=== PATIENT | female | born 1940 | race Two or more races ===

== ENCOUNTER 2017-09-11 10:53 | Inpatient (IN) | payer OTHER, MEDICAID ==
[~2017-09-11] VITALS: Ht 163.8 cm; Wt 103.6 kg
[2017-09-11 11:54] LABS: Basophils # (auto) 0 uL; Basophils % (auto) 0.4 % (0.0-2.0); Eosinophils # (auto) 0.2 uL; Eosinophils % (auto) 2.1 % (0.0-7.0); Hematocrit 37.3 % (36.0-46.0); Hemoglobin 12.5 g/dL (12.2-16.2); Lymphocytes # (auto) 1.1 uL; Lymphocytes % (auto) 13.9 % (10.0-50.0); Mean Corpuscular Hemoglobin 32.5 pg (28.0-32.0); Mean Corpuscular Hgb Conc. 33.6 g/dL (32.0-36.0); Mean Corpuscular Volume 96.6 fL (80.0-100.0); Monocytes # (auto) 0.5 uL; Monocytes % (auto) 5.6 % (0.0-12.0); Neutrophils # (auto) 6.3 uL; Platelet Count (auto) 215 10^3/uL (140-450); Red Blood Cells 3.86 10^6/uL (4.0-5.20); Red Cell Distribution Width 12.7 % (11.8-14.3); White Blood Cell 8.1 10^3/uL (4.4-10.8)
[2017-09-11 12:24] LABS: Alanine Aminotransferase 20 U/L (13-56); Albumin 3.4 g/dL (3.4-5.0); Alkaline Phosphatase 98 U/L (45-117); Anion Gap 8 (5-15); Aspartate Aminotransferase 13 U/L (15-37); BUN/Creatinine Ratio 26.1; Bilirubin, Total 0.2 mg/dL (0.2-1.0); Blood Urea Nitrogen 58 mg/dL (7-18); Calcium 8.7 mg/dL (8.5-10.1); Carbon Dioxide 25 mmol/L (21-32); Chloride 104 mmol/L (98-107); GFR African American 28 mL/min; GFR Non-African American 23 mL/min; Glucose 259 mg/dL (74-106); Magnesium 2.6 mg/dL (1.6-2.6); Potassium 4.7 mmol/L (3.5-5.1); Sodium 137 mmol/L (136-145); Total Protein 8.2 g/dL (6.4-8.2)
[2017-09-11] MEDS ORDERED: NITROGLYCERIN 0.4 MG SL TAB SL PRN (14:30)
[2017-09-11] MEDS ORDERED: DEXTROSE (50%) 50ML SYRG IV PRN (14:30)
[2017-09-11] MEDS ORDERED: LORazepam 0.5 MG TAB PO PRN (14:30)
[2017-09-11] MEDS ORDERED: TEMAZEPAM 15 MG CAP PO PRN (14:30)
[2017-09-11] MEDS ORDERED: ALBUTEROL SULF 2.5 MG/0.5ML(0.5%) NEB SOLN NEB PRN (14:30)
[2017-09-11] MEDS ORDERED: PROMETHAZINE HCL 25 MG/ML 1ML IV PRN (14:30)
[2017-09-11] MEDS ORDERED: LACTULOSE 20Gm/30ML SOLN PO PRN ×2 (14:30)
[2017-09-11] MEDS ORDERED: MORPHINE SULFATE 4 MG/ML SYR/VIAL IV PRN ×2 (14:30)
[2017-09-11] MEDS ORDERED: HYDROcodone-ACET 5/325MG TAB PO PRN (14:30)
[2017-09-11 15:11] VITALS: BP 118/63
[2017-09-11] MEDS: ASPirin 81 mg TAB PO SCH (15:16)
[2017-09-11] MEDS: ENOXAPARIN SOD 30 MG/0.3 ML SYRINGE SC SCH (15:17)
[2017-09-11 15:34] LABS: Folate (Folic Acid) > 24.00 ng/mL (5.38-24)
[2017-09-11 15:35] LABS: Urine Bacteria MANY /hpf (None Seen); Urine Blood Negative /uL (Negative); Urine WBC 8 /hpf (0 - 5)
[2017-09-11] MEDS: InsuLIN REG 1unit/0.01ml Soln (100units/ml) SC SCH ×2 (17:00→22:03)
[2017-09-11 17:42] VITALS: BP 163/82
[2017-09-11] MEDS ORDERED: PREG100C PO (17:51)
[2017-09-11] MEDS ORDERED: LISI-275 PO (17:51)
[2017-09-11] MEDS ORDERED: SITA100T7 PO (17:51)
[2017-09-11] MEDS ORDERED: ATEN100T PO (17:51)
[2017-09-11] MEDS ORDERED: ASPI81TA27 PO (17:51)
[2017-09-11] MEDS ORDERED: FURO40TA4 PO (17:51)
[2017-09-11] MEDS ORDERED: SIMV10TA84 PO (17:51)
[2017-09-11] MEDS ORDERED: INSLANTI SC (17:51)
[2017-09-11] MEDS ORDERED: INSLISPI SC (17:51)
[2017-09-11] MEDS: ACCU-CHEK COMFORT CURVE STRIP VI SCH ×2 (17:59→21:45)
[2017-09-11] MEDS: DOXYCYCLINE 100MG/250ML 250 ML IV SCH (18:34)
[2017-09-11] MEDS: SODIUM CHLORIDE 0.9% 1,000 ML IV SCH (18:34)
[2017-09-11] MEDS: ALBUTEROL SULF 2.5 MG/0.5ML(0.5%) NEB SOLN NEB SCH (19:24)
[2017-09-11] MEDS: IPRATROPIUM BROM 0.5 MG/2.5ML INH SOL NEB SCH (19:24)
[2017-09-11] MEDS ORDERED: LORazepam 2MG/ML-1ML VIAL IV PRN (19:45)
[2017-09-11 21:03] LABS: Cholesterol 180 mg/dL (< 200); HDL Cholesterol 39 mg/dL (40-59); LDL Cholesterol 111 mg/dL (< 100); Triglycerides 310 mg/dL (< 150)
[2017-09-11 21:43] VITALS: BP 163/59
[2017-09-11] MEDS: ATORVASTATIN 20 MG TAB PO SCH (21:45)
[2017-09-11] MEDS: SODIUM CHLOR 0.9% PF (SALINE LOCK) 10ML VIAL/SYR IV SCH (21:45)
[2017-09-11] MEDS: LABETALOL HCL 5 MG/ML ML 20ML VIAL IV PRN (21:46)
[2017-09-11] MEDS ORDERED: ATORVASTATIN 20 MG TAB PO SCH (22:00)
[2017-09-12] MEDS: DOXYCYCLINE 100MG/250ML 250 ML IV SCH ×2 (02:50→15:56)
[2017-09-12 05:00] VITALS: BP 120/55
[2017-09-12 06:15] LABS: Basophils # (auto) 0 uL; Basophils % (auto) 0.5 % (0.0-2.0); Eosinophils # (auto) 0.2 uL; Eosinophils % (auto) 2.8 % (0.0-7.0); Hematocrit 33.5 % (36.0-46.0); Hemoglobin 11.4 g/dL (12.2-16.2); Lymphocytes # (auto) 1.5 uL; Lymphocytes % (auto) 24.9 % (10.0-50.0); Mean Corpuscular Hgb Conc. 34.1 g/dL (32.0-36.0); Mean Corpuscular Volume 96.8 fL (80.0-100.0); Monocytes # (auto) 0.5 uL; Monocytes % (auto) 7.6 % (0.0-12.0); Neutrophils # (auto) 3.8 uL; Neutrophils % (auto) 64.2 % (37.0-80.0); Platelet Count (auto) 181 10^3/uL (140-450); Red Blood Cells 3.47 10^6/uL (4.0-5.20); Red Cell Distribution Width 12.7 % (11.8-14.3)
[2017-09-12] MEDS: IPRATROPIUM BROM 0.5 MG/2.5ML INH SOL NEB SCH ×4 (06:41→18:45)
[2017-09-12] MEDS: ALBUTEROL SULF 2.5 MG/0.5ML(0.5%) NEB SOLN NEB SCH ×4 (06:41→18:44)
[2017-09-12] MEDS: ACCU-CHEK COMFORT CURVE STRIP VI SCH ×4 (06:44→22:00)
[2017-09-12] MEDS: SODIUM CHLOR 0.9% PF (SALINE LOCK) 10ML VIAL/SYR IV SCH ×3 (06:44→22:33)
[2017-09-12] MEDS: InsuLIN REG 1unit/0.01ml Soln (100units/ml) SC SCH ×4 (06:44→22:34)
[2017-09-12 06:45] LABS: Albumin 3.1 g/dL (3.4-5.0); BUN/Creatinine Ratio 26.7; Bilirubin, Total 0.2 mg/dL (0.2-1.0); Calcium 8.6 mg/dL (8.5-10.1); Phosphorus 4.5 mg/dL (2.5-4.90); Total Protein 7.2 g/dL (6.4-8.2); Uric Acid 10.3 mg/dL (2.6-6.0)
[2017-09-12 09:00] VITALS: BP 139/66
[2017-09-12] MEDS ORDERED: POTASSIUM CHL 20 Meq TABLET PO SCH (10:00)
[2017-09-12] MEDS ORDERED: ENOXAPARIN SOD 40 MG/0.4 ML SYRINGE SC SCH (10:00)
[2017-09-12] MEDS: ENOXAPARIN SOD 30 MG/0.3 ML SYRINGE SC SCH (10:33)
[2017-09-12] MEDS: ASPirin 81 mg TAB PO SCH (10:33)
[2017-09-12] MEDS: SODIUM CHLORIDE 0.9% 1,000 ML IV SCH ×2 (10:34→15:23)
[2017-09-12] MEDS: FUROSEMIDE 40 MG/4 ML VIAL IV SCH (10:34)
[2017-09-12 12:34] VITALS: BP 167/78
[2017-09-12] MEDS: LABETALOL HCL 5 MG/ML ML 20ML VIAL IV PRN (13:05)
[2017-09-12 17:02] VITALS: BP 156/66
[2017-09-12 22:00] VITALS: BP 148/71
[2017-09-12] MEDS: ATORVASTATIN 20 MG TAB PO SCH (22:33)
[2017-09-13] MEDS: IPRATROPIUM BROM 0.5 MG/2.5ML INH SOL NEB SCH ×3 (00:36→11:31)
[2017-09-13] MEDS: ALBUTEROL SULF 2.5 MG/0.5ML(0.5%) NEB SOLN NEB SCH ×3 (00:36→11:31)
[2017-09-13] MEDS: DOXYCYCLINE 100MG/250ML 250 ML IV SCH ×2 (02:37→14:18)
[2017-09-13] MEDS: ACETAMINOPHEN 500 MG TAB PO PRN ×2 (04:39→12:08)
[2017-09-13 05:36] VITALS: BP 156/82
[2017-09-13] MEDS: SODIUM CHLOR 0.9% PF (SALINE LOCK) 10ML VIAL/SYR IV SCH ×2 (06:07→14:00)
[2017-09-13] MEDS: InsuLIN REG 1unit/0.01ml Soln (100units/ml) SC SCH ×3 (06:51→17:00)
[2017-09-13] MEDS: ACCU-CHEK COMFORT CURVE STRIP VI SCH ×3 (06:51→17:00)
[2017-09-13 07:24] LABS: BUN/Creatinine Ratio 23.3; Calcium 8.4 mg/dL (8.5-10.1); Potassium 4.3 mmol/L (3.5-5.1)
[2017-09-13 08:00] VITALS: BP 136/57
[2017-09-13 09:00] VITALS: BP 136/57
[2017-09-13] MEDS: SODIUM CHLORIDE 0.9% 1,000 ML IV SCH ×2 (09:31→14:18)
[2017-09-13] MEDS: ASPirin 81 mg TAB PO SCH (09:40)
[2017-09-13] MEDS: ENOXAPARIN SOD 30 MG/0.3 ML SYRINGE SC SCH (09:41)
[2017-09-13] MEDS: FUROSEMIDE 40 MG/4 ML VIAL IV SCH (09:41)
[2017-09-13] MEDS ORDERED: ENOXAPARIN SOD 40 MG/0.4 ML SYRINGE SC SCH (10:00)
[2017-09-13] MEDS ORDERED: amLODIPine BESYLATE 5 MG TAB PO SCH (10:00)
[2017-09-13 10:46] LABS: Urine Bacteria FEW /hpf (None Seen); Urine Blood Negative /uL (Negative); Urine Specific Gravity 1.009 (1.001-1.035); Urine WBC <1 /hpf (0 - 5)
[2017-09-13 11:19] LABS: Protein, Urine 33.7 mg/dL (0.0-11.9)
[2017-09-13 13:00] VITALS: BP 158/61
[2017-09-13 16:16] VITALS: BP 158/61
[2017-09-13 17:00] VITALS: BP 150/61
== END 2017-09-13 17:40 | disposition home or self-care (01) | DRG 682 ==
LOC: ER 10:53 → TELE 10:54 → TELE-WESTW 16:59
PROVIDERS: ADMIT Internal Medicine; ATTEND Internal Medicine
DX: I12.9 Hypertensive chronic kidney disease with stage 1 through stage 4 chronic kidney disease, or unspecified chronic kidney disease (principal); N17.0 Acute kidney failure with tubular necrosis; G45.9 Transient cerebral ischemic attack, unspecified; E11.22 Type 2 diabetes mellitus with diabetic chronic kidney disease; E11.40 Type 2 diabetes mellitus with diabetic neuropathy, unspecified; I67.2 Cerebral atherosclerosis; E66.01 Morbid (severe) obesity due to excess calories; E78.5 Hyperlipidemia, unspecified; F17.200 Nicotine dependence, unspecified, uncomplicated; F40.240 Claustrophobia; G47.10 Hypersomnia, unspecified; N18.3 Chronic kidney disease, stage 3 (moderate); Z79.82 Long term (current) use of aspirin; Z79.899 Other long term (current) drug therapy; Z82.49 Family history of ischemic heart disease and other diseases of the circulatory system; Z83.3 Family history of diabetes mellitus; Z90.710 Acquired absence of both cervix and uterus; Z90.49 Acquired absence of other specified parts of digestive tract
CPT/HCPCS: 36415; 70450; 71045; 76775; 80048; 80053; 80061; 81001; 82306; 82550; 82570; 82607; 82746; 82962; 83036; 83605; 83735; 83880; 84100; 84156; 84300; 84443; 84484; 84550; 85025; 85379; 85652; 86141; 87040; 87804; 93005; 93306; 93886; 93971; 94640; 94761; J1815; J3490

== ENCOUNTER 2019-05-31 11:04 | Emergency (ER) | payer OTHER ==
[~2019-05-31] VITALS: Ht 165.1 cm; Wt 89.8 kg
[~2019-05-31 11:04] MED LIST: ASPI-404 PO; ATEN100T PO; FURO40TA4 PO; INSLANTI SC; INSLISPI SC; LISI-275 PO; PREG100C PO; SIMV10TA84 PO; SITA100T7 PO
[2019-05-31 11:58] LABS: Basophils # (auto) 0.1 uL; Basophils % (auto) 0.7 % (0.0-2.0); Eosinophils # (auto) 0.1 uL; Eosinophils % (auto) 1.8 % (0.0-7.0); Hematocrit 38.2 % (36.0-46.0); Hemoglobin 13.2 g/dL (12.2-16.2); Lymphocytes # (auto) 1.3 uL; Lymphocytes % (auto) 17.4 % (10.0-50.0); Mean Corpuscular Hemoglobin 32.3 pg (28.0-32.0); Mean Corpuscular Hgb Conc. 34.5 g/dL (32.0-36.0); Mean Corpuscular Volume 93.7 fL (80.0-100.0); Monocytes # (auto) 0.4 uL; Monocytes % (auto) 5.4 % (0.0-12.0); Neutrophils # (auto) 5.6 uL; Neutrophils % (auto) 74.7 % (37.0-80.0); Platelet Count (auto) 256 10^3/uL (140-450); Red Blood Cells 4.08 10^6/uL (4.0-5.20); Red Cell Distribution Width 12.9 % (11.8-14.3); White Blood Cell 7.5 10^3/uL (4.4-10.8)
[2019-05-31 12:13] LABS: INR 0.96 (0.9-1.15); Partial Thromboplastin Time 27.5 sec (23.64-32.05)
[2019-05-31 12:15] LABS: Alanine Aminotransferase 29 U/L (13-56); Anion Gap 9 (5-15); Aspartate Aminotransferase 23 U/L (15-37); BUN/Creatinine Ratio 11.5; Blood Urea Nitrogen 23 mg/dL (7-18); Calcium 7.8 mg/dL (8.5-10.1); Carbon Dioxide 23 mmol/L (21-32); Chloride 105 mmol/L (98-107); GFR African American 31 mL/min; GFR Non-African American 26 mL/min; Glucose 160 mg/dL (74-106); Potassium 4.3 mmol/L (3.5-5.1); Sodium 137 mmol/L (136-145)
[2019-05-31 12:20] LABS: Alkaline Phosphatase 89 U/L (45-117); Bilirubin, Total 0.2 mg/dL (0.2-1.0)
[2019-05-31] MEDS: ASPirin-EC 81 mg tab PO ONE (16:11)
[2019-05-31 17:00] VITALS: BP 159/76
== END 2019-05-31 17:40 | disposition home or self-care (01) ==
LOC: ER 11:04 → EDBD 11:04 → ER 17:40
DX: R00.2 Palpitations (principal); R07.89 Other chest pain; R47.81 Slurred speech; R79.89 Other specified abnormal findings of blood chemistry; I12.9 Hypertensive chronic kidney disease with stage 1 through stage 4 chronic kidney disease, or unspecified chronic kidney disease; E11.22 Type 2 diabetes mellitus with diabetic chronic kidney disease; N18.9 Chronic kidney disease, unspecified; E78.5 Hyperlipidemia, unspecified; Z79.899 Other long term (current) drug therapy
CPT/HCPCS: 36415; 70450; 71045; 80053; 83735; 83880; 84443; 84484; 85025; 85379; 85610; 85730; 93005

== ENCOUNTER 2019-09-12 10:57 | Emergency (ER) | payer OTHER ==
[~2019-09-12] VITALS: Ht 165.1 cm; Wt 89.8 kg
[2019-09-12 12:38] LABS: Basophils # (auto) 0 10 ^3/uL (0-0.2); Basophils % (auto) 0.6 % (0.0-2.0); Eosinophils # (auto) 0.1 10 ^3/uL (0-0.8); Eosinophils % (auto) 1.4 % (0.0-7.0); Hematocrit 37.2 % (36.0-46.0); Hemoglobin 12.6 g/dL (12.2-16.2); Lymphocytes # (auto) 1.4 10 ^3/uL (0.4-5.4); Lymphocytes % (auto) 16.4 % (10.0-50.0); Mean Corpuscular Hemoglobin 32.2 pg (28.0-32.0); Mean Corpuscular Hgb Conc. 33.8 g/dL (32.0-36.0); Mean Corpuscular Volume 95.1 fL (80.0-100.0); Monocytes # (auto) 0.6 10 ^3/uL (0-1.3); Monocytes % (auto) 6.9 % (0.0-12.0); Neutrophils # (auto) 6.5 10 ^3/uL (1.6-8.6); Neutrophils % (auto) 74.7 % (37.0-80.0); Platelet Count (auto) 236 10^3/uL (140-450); Red Blood Cells 3.92 10^6/uL (4.0-5.20); Red Cell Distribution Width 13.1 % (11.8-14.3); White Blood Cell 8.6 10^3/uL (4.4-10.8)
[2019-09-12 13:02] LABS: Alanine Aminotransferase 14 U/L (13-56); Albumin 3.1 g/dL (3.4-5.0); Anion Gap 7 (5-15); Aspartate Aminotransferase 15 U/L (15-37); BUN/Creatinine Ratio 14.5; Blood Urea Nitrogen 32 mg/dL (7-18); Calcium 8.4 mg/dL (8.5-10.1); Carbon Dioxide 22 mmol/L (21-32); Chloride 110 mmol/L (98-107); GFR African American 28 mL/min; GFR Non-African American 23 mL/min; Glucose 85 mg/dL (74-106); Potassium 3.6 mmol/L (3.5-5.1); Sodium 139 mmol/L (136-145)
[2019-09-12 13:06] LABS: Alkaline Phosphatase 94 U/L (45-117); Bilirubin, Total 0.2 mg/dL (0.2-1.0); Total Protein 8.2 g/dL (6.4-8.2)
[2019-09-12 14:58] VITALS: BP 190/76
== END 2019-09-12 15:10 | disposition home or self-care (01) ==
LOC: ER 10:57
DX: R53.1 Weakness (principal); E11.22 Type 2 diabetes mellitus with diabetic chronic kidney disease; I12.9 Hypertensive chronic kidney disease with stage 1 through stage 4 chronic kidney disease, or unspecified chronic kidney disease; N18.9 Chronic kidney disease, unspecified; Z86.73 Personal history of transient ischemic attack (TIA), and cerebral infarction without residual deficits; Z90.710 Acquired absence of both cervix and uterus
CPT/HCPCS: 36415; 71046; 74176; 80053; 84484; 85025; 85379

== ENCOUNTER 2021-01-19 16:25 | Emergency (ER) | payer OTHER ==
[~2021-01-19] VITALS: Ht 160 cm; Wt 90.3 kg
[~2021-01-19 16:25] MED LIST changes: -ASPI-404 PO; +ASPI-543 PO
[2021-01-19] MEDS ORDERED: cloNIDine HCL 0.1 MG TAB PO ONE (17:00)
[2021-01-19] MEDS ORDERED: FUROSEMIDE 40 MG/4 ML VIAL IV ONE (17:00)
[2021-01-19 17:19] LABS: Basophils # (auto) 0.1 10 ^3/uL (0-0.2); Basophils % (auto) 0.6 % (0.0-2.0); Eosinophils # (auto) 0.1 10 ^3/uL (0-0.8); Eosinophils % (auto) 0.9 % (0.0-7.0); Hematocrit 35.2 % (36.0-46.0); Hemoglobin 11.6 g/dL (12.2-16.2); Lymphocytes # (auto) 1.4 10 ^3/uL (0.4-5.4); Lymphocytes % (auto) 11.8 % (10.0-50.0); Mean Corpuscular Hemoglobin 32.2 pg (28.0-32.0); Mean Corpuscular Hgb Conc. 32.8 g/dL (32.0-36.0); Mean Corpuscular Volume 98.2 fL (80.0-100.0); Monocytes # (auto) 0.6 10 ^3/uL (0-1.3); Monocytes % (auto) 5.1 % (0.0-12.0); Neutrophils # (auto) 9.6 10 ^3/uL (1.6-8.6); Neutrophils % (auto) 81.6 % (37.0-80.0); Red Blood Cells 3.59 10^6/uL (4.0-5.20); Red Cell Distribution Width 12.9 % (11.8-14.3); White Blood Cell 11.7 10^3/uL (4.4-10.8)
[2021-01-19 18:04] LABS: Albumin 2.9 g/dL (3.4-5.0); Anion Gap 8 (5-15); Blood Urea Nitrogen 36 mg/dL (7-18); Calcium 8.3 mg/dL (8.5-10.1); Carbon Dioxide 22 mmol/L (21-32); Chloride 111 mmol/L (98-107); Glucose 71 mg/dL (74-106); Magnesium 2.4 mg/dL (1.6-2.6); Potassium 4.4 mmol/L (3.5-5.1); Sodium 141 mmol/L (136-145)
[2021-01-19 18:09] LABS: Alanine Aminotransferase 19 U/L (13-56); Alkaline Phosphatase 74 U/L (45-117); Aspartate Aminotransferase 13 U/L (15-37); BUN/Creatinine Ratio 11.6; Bilirubin, Total 0.2 mg/dL (0.2-1.0); GFR African American 19 mL/min; GFR Non-African American 15 mL/min; Total Protein 7.4 g/dL (6.4-8.2)
[2021-01-19 19:09] VITALS: BP 165/66
== END 2021-01-19 19:18 | disposition home or self-care (01) ==
LOC: ER 16:27
DX: I13.0 Hypertensive heart and chronic kidney disease with heart failure and stage 1 through stage 4 chronic kidney disease, or unspecified chronic kidney disease (principal); I50.9 Heart failure, unspecified; R22.43 Localized swelling, mass and lump, lower limb, bilateral; E11.22 Type 2 diabetes mellitus with diabetic chronic kidney disease; N18.9 Chronic kidney disease, unspecified; E78.5 Hyperlipidemia, unspecified; Z86.73 Personal history of transient ischemic attack (TIA), and cerebral infarction without residual deficits; Z90.49 Acquired absence of other specified parts of digestive tract; Z90.710 Acquired absence of both cervix and uterus; Z79.82 Long term (current) use of aspirin; Z79.4 Long term (current) use of insulin; Z79.899 Other long term (current) drug therapy
CPT/HCPCS: 36415; 71045; 80053; 83735; 83880; 84484; 85025; 93005; 96374; 99285; J1940

== ENCOUNTER 2021-03-24 23:54 | Emergency (ER) | payer OTHER ==
[~2021-03-24] VITALS: Ht 162.6 cm; Wt 88.5 kg
[2021-03-25 03:57] LABS: Basophils # (auto) 0 10 ^3/uL (0-0.2); Basophils % (auto) 0.3 % (0.0-2.0); Eosinophils # (auto) 0 10 ^3/uL (0-0.8); Eosinophils % (auto) 0.5 % (0.0-7.0); Hematocrit 30.7 % (36.0-46.0); Hemoglobin 10.2 g/dL (12.2-16.2); Lymphocytes # (auto) 1.5 10 ^3/uL (0.4-5.4); Lymphocytes % (auto) 17.2 % (10.0-50.0); Mean Corpuscular Hemoglobin 32.4 pg (28.0-32.0); Mean Corpuscular Hgb Conc. 33.3 g/dL (32.0-36.0); Mean Corpuscular Volume 97.3 fL (80.0-100.0); Monocytes # (auto) 0.5 10 ^3/uL (0-1.3); Monocytes % (auto) 6.1 % (0.0-12.0); Neutrophils # (auto) 6.5 10 ^3/uL (1.6-8.6); Neutrophils % (auto) 75.9 % (37.0-80.0); Red Blood Cells 3.16 10^6/uL (4.0-5.20); Red Cell Distribution Width 12.8 % (11.8-14.3); White Blood Cell 8.6 10^3/uL (4.4-10.8)
[2021-03-25 04:23] LABS: Albumin 2.6 g/dL (3.4-5.0); Calcium 7.6 mg/dL (8.5-10.1); Potassium 4.3 mmol/L (3.5-5.1)
[2021-03-25 04:28] LABS: Bilirubin, Total 0.2 mg/dL (0.2-1.0); Total Protein 7.5 g/dL (6.4-8.2)
[2021-03-25] MEDS ORDERED: cloNIDine HCL 0.1 MG TAB PO ONE (11:00)
[2021-03-25] MEDS ORDERED: AML5T PO (12:58)
[2021-03-25] MEDS ORDERED: amLODIPine BESYLATE 5 MG TAB PO ONE (13:00)
[2021-03-25 13:43] VITALS: BP 132/57
== END 2021-03-25 14:05 | disposition home or self-care (01) ==
LOC: ER 23:54
DX: R07.89 Other chest pain (principal); R53.83 Other fatigue; M79.10 Myalgia, unspecified site; E11.9 Type 2 diabetes mellitus without complications; E78.5 Hyperlipidemia, unspecified; Z90.710 Acquired absence of both cervix and uterus; Z86.73 Personal history of transient ischemic attack (TIA), and cerebral infarction without residual deficits; Z20.822 Contact with and (suspected) exposure to COVID-19
CPT/HCPCS: 36415; 71045; 80053; 82962; 83605; 83880; 84484; 85025; 85379; 87426; 93005

== ENCOUNTER 2022-04-05 11:05 | Emergency (ER) | payer OTHER ==
[~2022-04-05] VITALS: Ht 162.6 cm; Wt 83.2 kg
[~2022-04-05 11:05] MED LIST changes: +AML5T PO
[2022-04-05 11:23] VITALS: BP 196/78
[2022-04-05 12:02] LABS: Basophils # (auto) 0.1 10 ^3/uL (0-0.2); Basophils % (auto) 0.6 % (0.0-2.0); Eosinophils # (auto) 0.2 10 ^3/uL (0-0.8); Eosinophils % (auto) 2.1 % (0.0-7.0); Hematocrit 35.3 % (36.0-46.0); Hemoglobin 11.8 g/dL (12.2-16.2); Lymphocytes # (auto) 1.2 10 ^3/uL (0.4-5.4); Lymphocytes % (auto) 13.9 % (10.0-50.0); Mean Corpuscular Hemoglobin 32.5 pg (28.0-32.0); Mean Corpuscular Hgb Conc. 33.5 g/dL (32.0-36.0); Mean Corpuscular Volume 97.1 fL (80.0-100.0); Monocytes # (auto) 0.6 10 ^3/uL (0-1.3); Neutrophils # (auto) 6.5 10 ^3/uL (1.6-8.6); Neutrophils % (auto) 76.4 % (37.0-80.0); Nucleated Red Blood Cells % 0.1 %; Red Blood Cells 3.63 10^6/uL (4.0-5.20); Red Cell Distribution Width 14.1 % (11.8-14.3); White Blood Cell 8.6 10^3/uL (4.4-10.8)
[2022-04-05 12:28] LABS: Albumin 3.5 g/dL (3.4-5.0); Calcium 7.7 mg/dL (8.5-10.1); Magnesium 2.8 mg/dL (1.6-2.6)
[2022-04-05 12:31] LABS: BUN/Creatinine Ratio 7.1; Bilirubin, Total 0.3 mg/dL (0.2-1.0); Total Protein 7.9 g/dL (6.4-8.2)
[2022-04-05] MEDS ORDERED: MECLIZINE HCL 25 MG TAB PO ONE (13:45)
[2022-04-05] MEDS ORDERED: MECL12.514 PO (16:01)
== END 2022-04-05 16:52 | disposition left against medical advice (07) ==
LOC: ER 11:05
DX: R42 Dizziness and giddiness (principal); I12.9 Hypertensive chronic kidney disease with stage 1 through stage 4 chronic kidney disease, or unspecified chronic kidney disease; E11.22 Type 2 diabetes mellitus with diabetic chronic kidney disease; N18.9 Chronic kidney disease, unspecified; E78.5 Hyperlipidemia, unspecified; Z86.73 Personal history of transient ischemic attack (TIA), and cerebral infarction without residual deficits; Z90.49 Acquired absence of other specified parts of digestive tract; Z90.710 Acquired absence of both cervix and uterus; Z79.82 Long term (current) use of aspirin; Z79.4 Long term (current) use of insulin; Z79.899 Other long term (current) drug therapy
CPT/HCPCS: 36415; 70450; 71046; 80053; 83735; 83880; 84484; 85025; 93005; 99285; J8597

== ENCOUNTER 2023-03-02 16:29 | Emergency (ER) | payer OTHER, MEDICAID ==
[~2023-03-02] VITALS: Ht 167.6 cm; Wt 84.0 kg
[~2023-03-02 16:29] MED LIST changes: +MECL1TAB31 PO; +SIMV10TA20 PO; -SIMV10TA84 PO
[2023-03-02 16:53] VITALS: BP 135/108; PULSE 76; RESP 20; O2SAT 98
[2023-03-02 17:20] LABS: Basophils # (auto) 0 10 ^3/uL (0-0.2); Basophils % (auto) 0.4 % (0.0-2.0); Eosinophils # (auto) 0.1 10 ^3/uL (0-0.8); Hemoglobin 10.7 g/dL (12.2-16.2); Lymphocytes # (auto) 1.1 10 ^3/uL (0.4-5.4); White Blood Cell 7.1 10^3/uL (4.4-10.8)
[2023-03-02 17:22] LABS: Eosinophils % (auto) 1.5 % (0.0-7.0); Hematocrit 32.2 % (36.0-46.0); Lymphocytes % (auto) 15.6 % (10.0-50.0); Mean Corpuscular Hemoglobin 34.2 pg (28.0-32.0); Mean Corpuscular Hgb Conc. 33.3 g/dL (32.0-36.0); Mean Corpuscular Volume 102.8 fL (80.0-100.0); Monocytes # (auto) 0.3 10 ^3/uL (0-1.3); Monocytes % (auto) 4.7 % (0.0-12.0); Neutrophils # (auto) 5.5 10 ^3/uL (1.6-8.6); Neutrophils % (auto) 77.8 % (37.0-80.0); Red Blood Cells 3.13 10^6/uL (4.0-5.20)
[2023-03-02 17:47] LABS: Alkaline Phosphatase 123 U/L (46-116); Anion Gap 8 (5-15); Aspartate Aminotransferase < 8 U/L (13-40); BUN/Creatinine Ratio 5.4 (10.0-20.0); Bilirubin, Total < 0.2 mg/dL (0.2-1.0); Blood Urea Nitrogen 21 mg/dL (9-23); Calcium 7.9 mg/dL (8.7-10.4); Carbon Dioxide 27 mmol/L (20-30); Chloride 103 mmol/L (98-107); Potassium 4.3 mmol/L (3.5-5.1); Sodium 138 mmol/L (136-145)
[2023-03-02 17:50] LABS: Alanine Aminotransferase < 9 U/L (7-40)
[2023-03-02 18:56] LABS: Glucose 418 mg/dL (74-106)
== END 2023-03-02 18:46 | disposition left against medical advice (07) ==
LOC: ER 16:29
DX: E11.65 Type 2 diabetes mellitus with hyperglycemia (principal); Z53.21 Procedure and treatment not carried out due to patient leaving prior to being seen by health care provider
CPT/HCPCS: 36415; 80053; 82962; 85025

== ENCOUNTER 2023-07-15 10:22 | Emergency (ER) | payer OTHER ==
[~2023-07-15] VITALS: Ht 165.1 cm; Wt 82.0 kg
[2023-07-15 10:23] VITALS: BP 188/64; RESP 18; O2SAT 94
[2023-07-15 10:47] LABS: Basophils # (auto) 0.1 10 ^3/uL (0-0.2); Basophils % (auto) 0.7 % (0.0-2.0); Eosinophils # (auto) 0.2 10 ^3/uL (0-0.8); Eosinophils % (auto) 3.3 % (0.0-7.0); Hematocrit 32.7 % (36.0-46.0); Hemoglobin 10.9 g/dL (12.2-16.2); Lymphocytes # (auto) 1.2 10 ^3/uL (0.4-5.4); Mean Corpuscular Hemoglobin 32.3 pg (28.0-32.0); Mean Corpuscular Hgb Conc. 33.2 g/dL (32.0-36.0); Mean Corpuscular Volume 97.4 fL (80.0-100.0); Monocytes # (auto) 0.4 10 ^3/uL (0-1.3); Monocytes % (auto) 5.7 % (0.0-12.0); Neutrophils # (auto) 5.3 10 ^3/uL (1.6-8.6); Neutrophils % (auto) 73.3 % (37.0-80.0); Red Blood Cells 3.36 10^6/uL (4.0-5.20); Red Cell Distribution Width 15.3 % (11.8-14.3); White Blood Cell 7.3 10^3/uL (4.4-10.8)
[2023-07-15 11:05] LABS: INR 0.97 (0.9-1.15); Partial Thromboplastin Time 24.4 SEC (24.5-34.5); Prothrombin Time 10.2 sec (9.3-11.8)
[2023-07-15 11:09] LABS: Albumin 3.9 g/dL (3.2-4.8); Alkaline Phosphatase 95 U/L (46-116); Anion Gap 7 (5-15); Aspartate Aminotransferase 13 U/L (13-40); BUN/Creatinine Ratio 6.5 (10.0-20.0); Bilirubin, Total 0.2 mg/dL (0.2-1.0); Blood Urea Nitrogen 34 mg/dL (9-23); Calcium 7.5 mg/dL (8.5-10.1); Carbon Dioxide 26 mmol/L (20-30); Chloride 104 mmol/L (98-107); Glucose 226 mg/dL (74-106); Sodium 137 mmol/L (136-145); Total Protein 6.9 g/dL (5.7-8.2)
[2023-07-15 11:10] LABS: Alanine Aminotransferase < 9 U/L (7-40)
[2023-07-15 11:57] VITALS: PULSE 65
== END 2023-07-15 12:32 | disposition left against medical advice (07) ==
LOC: ER 10:22
DX: R07.9 Chest pain, unspecified (principal); I13.11 Hypertensive heart and chronic kidney disease without heart failure, with stage 5 chronic kidney disease, or end stage renal disease; E11.22 Type 2 diabetes mellitus with diabetic chronic kidney disease; N18.6 End stage renal disease; Z79.4 Long term (current) use of insulin; Z85.9 Personal history of malignant neoplasm, unspecified; E78.5 Hyperlipidemia, unspecified; Z86.73 Personal history of transient ischemic attack (TIA), and cerebral infarction without residual deficits; Z79.899 Other long term (current) drug therapy; Z99.2 Dependence on renal dialysis
CPT/HCPCS: 36415; 71045; 80053; 82962; 84484; 85025; 85610; 85730; 93005

== ENCOUNTER 2023-12-21 09:19 | Inpatient (IN) | payer OTHER ==
[~2023-12-21] VITALS: Ht 154.9 cm; Wt 79.7 kg
[~2023-12-21 09:19] MED LIST changes: +MECL12.586 PO; -MECL1TAB31 PO
[2023-12-21 09:44] LABS: Basophils # (auto) 0 10 ^3/uL (0-0.2); Basophils % (auto) 0.5 % (0.0-2.0); Eosinophils # (auto) 0.2 10 ^3/uL (0-0.8); Hematocrit 35.1 % (36.0-46.0); Hemoglobin 11.5 g/dL (12.2-16.2); Lymphocytes # (auto) 1.3 10 ^3/uL (0.4-5.4); Lymphocytes % (auto) 17.6 % (10.0-50.0); Mean Corpuscular Hemoglobin 32.3 pg (28.0-32.0); Mean Corpuscular Hgb Conc. 32.7 g/dL (32.0-36.0); Mean Corpuscular Volume 98.8 fL (80.0-100.0); Monocytes # (auto) 0.5 10 ^3/uL (0-1.3); Monocytes % (auto) 7.6 % (0.0-12.0); Neutrophils # (auto) 5.1 10 ^3/uL (1.6-8.6); Neutrophils % (auto) 71.3 % (37.0-80.0); Platelet Count (auto) 216 10^3/uL (140-450); Red Blood Cells 3.55 10^6/uL (4.0-5.20); Red Cell Distribution Width 15.1 % (11.8-14.3); White Blood Cell 7.1 10^3/uL (4.4-10.8)
[2023-12-21 10:07] VITALS: PULSE 62; RESP 18; O2SAT 96
[2023-12-21] MEDS: ASPirin 81 mg TAB PO ONE (10:07)
[2023-12-21 10:11] LABS: Albumin 3.8 g/dL (3.2-4.8); Alkaline Phosphatase 94 U/L (46-116); Anion Gap 5 (5-15); Aspartate Aminotransferase < 8 U/L (13-40); BUN/Creatinine Ratio 5.7 (10.0-20.0); Bilirubin, Total 0.2 mg/dL (0.2-1.0); Blood Urea Nitrogen 40 mg/dL (9-23); Calcium 7.6 mg/dL (8.7-10.4); Carbon Dioxide 23 mmol/L (20-30); Chloride 109 mmol/L (98-107); Glucose 160 mg/dL (74-106); Sodium 137 mmol/L (136-145); Total Protein 6.8 g/dL (5.7-8.2)
[2023-12-21 10:14] LABS: Alanine Aminotransferase < 9 U/L (7-40)
[2023-12-21 10:16] LABS: INR 0.97 (0.9-1.15); Partial Thromboplastin Time 26.3 SEC (24.5-34.5); Prothrombin Time 10.3 sec (9.3-11.8)
[2023-12-21] MEDS: ONDANSETRON HCL 4 MG/2 ML VIAL IV ONE (10:45)
[2023-12-21] MEDS: MORPHINE SULFATE INJ 2 MG/ml SYRG IV ONE (10:45)
[2023-12-21] MEDS ORDERED: NITROGLYCERIN 0.4 MG SL TAB SL PRN (11:15)
[2023-12-21] MEDS ORDERED: MORPHINE SULFATE INJ 2 MG/ml SYRG IV PRN (11:15)
[2023-12-21] MEDS: FUROSEMIDE 40 MG TAB PO ONE (13:44)
[2023-12-21] MEDS: CALCIUM GLUC 1,000mg/50ml-NS 50 ML IV ONE (13:45)
[2023-12-21] MEDS: amLODIPine BESYLATE 5 MG TAB PO ONE (13:45)
[2023-12-21] MEDS: CARVEDILOL 12.5 MG TAB PO ONE (13:45)
[2023-12-21 14:15] LABS: Magnesium 2.2 mg/dL (1.6-2.6)
[2023-12-21 14:16] LABS: Phosphorus 6.3 mg/dL (2.4-5.1)
[2023-12-21] MEDS: FUROSEMIDE 40 MG TAB PO SCH (18:00)
[2023-12-21 18:35] VITALS: BP 138/81; PULSE 82; RESP 20; TEMP 98; O2SAT 96
[2023-12-21 18:49] VITALS: O2SAT 96
[2023-12-21 19:05] VITALS: BP 138/81; PULSE 82; RESP 20; TEMP 98; O2SAT 96
[2023-12-21 20:00] VITALS: PULSE 66; PULSE 71; RESP 18; O2SAT 96
[2023-12-21 21:00] VITALS: BP 175/66; PULSE 70; RESP 18; TEMP 98.3; O2SAT 95
[2023-12-21] MEDS: CARVEDILOL 12.5 MG TAB PO SCH (21:33)
[2023-12-21] MEDS: ATORVASTATIN 20 MG TAB PO SCH (21:33)
[2023-12-21] MEDS: hydrALAZINE HCL 20 MG/ML VL IV PRN (23:56)
[2023-12-22] VITALS (8 sets, daily range): BP systolic 136–182; BP diastolic 40–88; PULSE 58–78; RESP 16–20; TEMP 97.5–98.5; O2SAT 93–99
[2023-12-22] MEDS ORDERED: DEXTROSE (50%) 50ML SYRG IV PRN (01:30)
[2023-12-22] MEDS: ACETAMINOPHEN 325 MG TAB PO PRN (01:40)
[2023-12-22] MEDS: cloNIDine HCL 0.1 MG TAB PO PRN (01:40)
[2023-12-22] MEDS: InsuLIN REG 1unit/0.01ml Soln (100units/ml) SC ONE (01:41)
[2023-12-22 06:38] LABS: Basophils # (auto) 0 10 ^3/uL (0-0.2); Basophils % (auto) 0.7 % (0.0-2.0); Eosinophils # (auto) 0.2 10 ^3/uL (0-0.8); Eosinophils % (auto) 3.1 % (0.0-7.0); Hematocrit 35.4 % (36.0-46.0); Hemoglobin 11.8 g/dL (12.2-16.2); Lymphocytes % (auto) 16.5 % (10.0-50.0); Mean Corpuscular Hemoglobin 32.6 pg (28.0-32.0); Mean Corpuscular Hgb Conc. 33.4 g/dL (32.0-36.0); Mean Corpuscular Volume 97.6 fL (80.0-100.0); Monocytes # (auto) 0.3 10 ^3/uL (0-1.3); Monocytes % (auto) 5.4 % (0.0-12.0); Neutrophils # (auto) 4.6 10 ^3/uL (1.6-8.6); Neutrophils % (auto) 74.3 % (37.0-80.0); Nucleated Red Blood Cells % 0.1 %; Platelet Count (auto) 211 10^3/uL (140-450); Red Blood Cells 3.62 10^6/uL (4.0-5.20); Red Cell Distribution Width 14.7 % (11.8-14.3); White Blood Cell 6.2 10^3/uL (4.4-10.8)
[2023-12-22 06:45] LABS: Chloride 106 mmol/L (98-107); Potassium 3.4 mmol/L (3.5-5.1); Sodium 141 mmol/L (136-145)
[2023-12-22 06:46] LABS: Anion Gap 7 (5-15); Calcium 8.5 mg/dL (8.7-10.4); Carbon Dioxide 28 mmol/L (20-30)
[2023-12-22] MEDS: ACCU-CHEK COMFORT CURVE STRIP VI SCH (06:48)
[2023-12-22] MEDS: InsuLIN REG 1unit/0.01ml Soln (100units/ml) SC SCH (06:49)
[2023-12-22 06:51] LABS: BUN/Creatinine Ratio 5.4 (10.0-20.0); Blood Urea Nitrogen 19 mg/dL (9-23); Glucose 133 mg/dL (74-106)
[2023-12-22] MEDS ORDERED: SODIUM CHL 0.9% 1000 ML BAG XX ONE (07:00)
[2023-12-22] MEDS ORDERED: ADENOSINE 71 MG in GIVE UN-DILUTED 0 ML IV ONE (09:15)
[2023-12-22] MEDS ORDERED: MORPHINE SULFATE INJ 2 MG/ml SYRG IV PRN (09:15)
[2023-12-22] MEDS ORDERED: NITROGLYCERIN 0.4 MG SL TAB SL PRN (09:15)
[2023-12-22] MEDS ORDERED: FUROSEMIDE 40 MG TAB PO SCH (10:00)
[2023-12-22] MEDS: amLODIPine BESYLATE 5 MG TAB PO SCH (10:29)
[2023-12-22] MEDS: ASPirin-EC 81 mg tab PO SCH (10:30)
[2023-12-22] MEDS: LISINOPRIL 5 MG TAB PO SCH (10:30)
[2023-12-23 01:00] VITALS: BP 156/51; PULSE 58; RESP 18; TEMP 98; O2SAT 100
[2023-12-23 05:00] VITALS: BP 151/60; PULSE 62; RESP 16; TEMP 97.6; O2SAT 100
[2023-12-23 08:00] VITALS: PULSE 59
[2023-12-23 09:00] VITALS: BP 152/49; PULSE 60; RESP 16; TEMP 98.1; O2SAT 99
[2023-12-23] MEDS ORDERED: AML5T PO (11:57)
[2023-12-23] MEDS ORDERED: ATOR20TA50 PO (11:57)
[2023-12-23] MEDS ORDERED: LISI-275 PO (11:57)
[2023-12-23] MEDS ORDERED: FURO40TA4 PO (11:57)
[2023-12-23] MEDS ORDERED: CARV-216 PO (11:57)
[2023-12-23 12:45] VITALS: BP 152/49; PULSE 61; TEMP 36.7
[2023-12-23 13:00] VITALS: BP 164/58; PULSE 72; RESP 16; TEMP 97.8; O2SAT 93
== END 2023-12-23 16:00 | disposition home or self-care (01) | DRG 205 ==
LOC: ER 09:19 → TELE 11:17 → TELE-EAST 17:57 → OBSVTOIN 12-22 10:37
PROVIDERS: ADMIT Internal Medicine; ATTEND Student in an Organized Health Care Education/Training Program
PROC: 5A1D70Z Performance of Urinary Filtration, Intermittent, Less than 6 Hours Per Day (ICD-10-PCS; principal; 2023-12-22)
DX: M94.0 Chondrocostal junction syndrome [Tietze] (principal); N18.6 End stage renal disease; I13.2 Hypertensive heart and chronic kidney disease with heart failure and with stage 5 chronic kidney disease, or end stage renal disease; I50.32 Chronic diastolic (congestive) heart failure; I16.0 Hypertensive urgency; E78.5 Hyperlipidemia, unspecified; E21.1 Secondary hyperparathyroidism, not elsewhere classified; E11.40 Type 2 diabetes mellitus with diabetic neuropathy, unspecified; E11.22 Type 2 diabetes mellitus with diabetic chronic kidney disease; D63.1 Anemia in chronic kidney disease; I27.20 Pulmonary hypertension, unspecified; Z99.2 Dependence on renal dialysis; Z86.73 Personal history of transient ischemic attack (TIA), and cerebral infarction without residual deficits; Z79.4 Long term (current) use of insulin; Z79.899 Other long term (current) drug therapy; Z79.82 Long term (current) use of aspirin; Z90.710 Acquired absence of both cervix and uterus; Z83.3 Family history of diabetes mellitus; Z82.3 Family history of stroke; Z82.49 Family history of ischemic heart disease and other diseases of the circulatory system
CPT/HCPCS: 36415; 71045; 76604; 76775; 78452; 80048; 80053; 80061; 82306; 82607; 82962; 83036; 83735; 83930; 84100; 84443; 84484; 85025; 85610; 85730; 90935; 93005; 93017; 93306; 99291; G0378; J0153; J1642; J1815

== ENCOUNTER 2024-03-24 12:36 | Emergency (ER) | payer OTHER ==
[~2024-03-24] VITALS: Ht 165.1 cm; Wt 84.0 kg
[~2024-03-24 12:36] MED LIST changes: -ATEN100T PO; +ATOR20TA50 PO; +CARV-216 PO; -MECL12.586 PO; -SIMV10TA20 PO
--- NOTE | 2024-03-24 12:50 | ED.PDOC ---
HPI Comments HPI: Poor Historian. 84 y.o female presents to the ED for a chief complaint of left sided chest pain associated with SOB that started this morning around 0700. Patient describes pain as a heaviness, states it is constant, non radiating and presented at rest. Patient denies any nausea, vomiting, diarrhea, fever, chills or leg swelling. Patient is on Dialysis Thursday, Thursday, and Thursday, reports she missed a session yesterday ( Thursday03/23/24). Patient is no longer on Eliquis Patient denies any allergies Vital Signs BP: 194/76 HR: 73 Temp: SPO2: 98% RA RR: 19 Past medical history: HTN, Hyperlipidemia, CA, DM,. COPD, ESRD on dialysis M,W,F Past surgical history: , hysterectomy, and appendectomy. REVIEW OF SYSTEMS: CONSTITUTIONAL: Denies acute: fever, diaphoresis, chills, HEAD: Denies acute: headache, photophobia Eyes: Denies acute: Double vision, vision loss, eye pain, eye discharge. EARS: Denies acute: tinnitus, hearing loss, ear discharge, ear pain, THROAT: Denies acute: sore throat, swelling, difficulty swallowing , pain with swallowing, change in voice. NECK: Denies acute: neck pain, neck swelling, stiff neck. HEART: Denies acute : palpitations, LUNGS: Denies acute: , wheezing, cough, hemoptysis ABDOMEN: Denies acute: abdominal pain, Nausea, Vomiting, diarrhea, melena , hematemesis, hematochezia SKIN: Denies acute: rash, redness, lesions, itchiness. EXTREMITIES: Denies acute: calf pain, numbness, tingling, weakness, denies pain in extremity. Denies acute: Low back pain. Neuro: Denies acute: focal neurological deficit, motor or sensory focal neurological deficit, tremors, seizure like activity, confusion, dizziness, change in mental status, loss of bowel or bladder function, cauda equina like symptoms. : Denies acute: dysuria, hematuria, flank pain, increase in urinary frequency. PSYCH: Denies acute: hallucination, suicidal ideation, homicidal ideation. FEMALE: Denies acute: abnormal vaginal bleeding, foul odor, unusual discharge. PHYSICAL EXAM: General: no acute distress, awake and alert. Head: normocephalic, atraumatic. Neck: supple, trachea is midline, no swelling. Throat: Normal phonation. Eyes:, no erythema, normal rate. no purulent discharge, no proptosis, no icterus. Heart: Irregular rhythm, no significant murmur appreciated. Lungs: no apparent respiratory distress, Able to speak in full sentences. No wheezing, no rhonchi, no crackles. No stridors Clear to auscultation bilaterally. Abdomen: non tender to palpation, non distended, soft, no guarding, no rebound, + bowel sounds. Neuro: Awake, Alert, oriented to name, self, situation, follows commands GCS=15. Speech is normal. Skin: no petechia, no purpura, no cyanosis, non-pale, not jaundice. Lower extremities: --trace bilateral- Pitting edema no deformity, no focal swelling, no calf TTP. Makes eye contact. moves all four extremities. Face: no apparent facial droop. Chief Complaint: Chest Pain Time Seen by MD: 12:45 Primary Care Provider: unknown Reviewed Notes: Nurses Notes, Allergies Allergies: Coded Allergies: NO KNOWN ALLERGIES (Unverified , 05/31/19) Home Meds Active Scripts Furosemide (Furosemide) 40 Mg Tab, 40 MG PO BIDD for 30 Days, #60 TAB 1 Refill Prov:SUNDAY BARNEY DO 12/23/23 Amlodipine Besylate (NORVASC TABLET) 5 Mg Tb, 10 MG PO DAILY for 30 Days, #60 TAB 1 Refill Prov:SUNDAY BARNEY DO 12/23/23 Carvedilol (COREG) 12.5 Mg Tab, 12.5 MG PO Q12HR for 30 Days, #60 TAB 1 Refill Prov:SUNDAY BARNEY DO 12/23/23 Lisinopril (Lisinopril) 5 Mg Tab, 5 MG PO DAILY for 30 Days, #30 TAB 1 Refill Prov:SUNDAY BARNEY DO 12/23/23 Atorvastatin Calcium (ATORVASTATIN CALCIUM) 20 Mg Tab, 40 MG PO HS for 30 Days, #60 TAB 1 Refill Prov:SUNDAY BARNEY DO 12/23/23 Reported Medications Insulin Lispro (Human) (Humalog) 100 Mg/Ml Inj, 30 MG SC HS, INJ 09/11/17 Insulin Glargine (Lantus) 100 Unit/Ml Inj, SC BS, INJ 09/11/17 Sitagliptin Phosphate (Januvia) 100 Mg Tab, 1 TAB PO DAILY, #30 TAB 5 Refills 09/11/17 Pregabalin (Lyrica) 100 Mg Cap, 1 CAP PO BID, #60 CAP 2 Refills 09/11/17 Aspirin (Aspir-Low) 81 Mg Tab, 81 MG PO DAILY for 30 Days, MG 09/11/17 Information Source: Patient Mode of Arrival: Wheelchair Past Medical History PAST MEDICAL HISTORY: Cancer, CKF, CVA, DM, High Lipids, HTN, TIA Surgical History: Appendectomy, , Hysterectomy PIPING ENGINEER History: No Pertinent PIPING ENGINEER History Family History Family History: No family hx of Cancer, Family hx of DM, Family hx of HTN Social History Smoker: Non-Smoker Alcohol: Denies ETOH Use Drugs: Denies Drug Use Lives In: Home Was a procedure done? Was a procedure done?: No CP Differential Dx Differential Diagnosis: N/A Differential Diagnosis: Other (DDX include renal disease, thyroid disease, electrolyte abnormality, increased salt intake, medications non-compliance, undiagnosed HTN, Hypertensive crisis, hypertensive urgency., drug toxicity.) Differential Diagnosis: Angina, Chest Wall Pain, Costochondritis, Myocardial Infarction, Pericarditis, Other (Ddx include but not limitied to gastritis, musculoskeletal pain, radiculopathy, atypical chest pain, dissection, aneurysm, ACS, unstable angina, hiatal hernia, GERD, anxiety, costochondritis, PE, pneumothroax, neoplasm, cardiac ischemia, drug abuse, anemia.) X-Ray, Labs, Meds, VS Vital Signs Date Time Temp Pulse Resp B/P (MAP) Pulse Ox O2 Delivery O2 Flow Rate FiO2 03/24/24 12:42 95 03/24/24 12:37 97.5 91 16 186/74 (111) 100 Lab Test 03/24/24 12:45 Range/Units White Blood Count 8.2 4.4-10.8 10^3/uL Red Blood Count 2.92 L 4.0-5.20 10^6/uL Hemoglobin 9.9 L 12.2-16.2 g/dL Hematocrit 33.2 L 36.0-46.0 % Mean Corpuscular Volume 113.3 H 80.0-100.0 fL Mean Corpuscular Hemoglobin 34.0 H 28.0-32.0 pg Mean Corpuscular Hemoglobin Concent 30.0 L 32.0-36.0 g/dL Red Cell Distribution Width 16.2 H 11.8-14.3 % Platelet Count 265 140-450 10^3/uL Mean Platelet Volume 7.8 6.9-10.8 fL Neutrophils (%) (Auto) 81.3 H 37.0-80.0 % Lymphocytes (%) (Auto) 10.3 10.0-50.0 % Monocytes (%) (Auto) 5.8 0.0-12.0 % Eosinophils (%) (Auto) 2.3 0.0-7.0 % Basophils (%) (Auto) 0.3 0.0-2.0 % Neutrophils # (Auto) 6.7 1.6-8.6 10 ^3/uL Lymphocytes # (Auto) 0.8 0.4-5.4 10 ^3/uL Monocytes # (Auto) 0.5 0-1.3 10 ^3/uL Eosinophils # (Auto) 0.2 0-0.8 10 ^3/uL Basophils # (Auto) 0 0-0.2 10 ^3/uL Nucleated Red Blood Cells 0.1 % Prothrombin Time 10.3 9.3-11.8 sec Prothrombin Time INR 0.97 0.9-1.15 Activated Partial Thromboplast Time 20.0 L 24.5-34.5 SEC D-Dimer, Quantitative 6.01 H 0.0-0.49 mg/L FEU Sodium Level 136 136-145 mmol/L Potassium Level 5.2 H 3.5-5.1 mmol/L Chloride Level 105 98-107 mmol/L Carbon Dioxide Level 15 L 20-31 mmol/L Anion Gap 16 H 5-15 Blood Urea Nitrogen 91 *H 9-23 mg/dL Creatinine 8.96 H 0.550-1.02 mg/dL Glomerular Filtration Rate Calc 4 >90 mL/min BUN/Creatinine Ratio 10.2 10.0-20.0 Serum Glucose 229 H 74-106 mg/dL Calcium Level 8.1 L 8.7-10.4 mg/dL Total Bilirubin 0.2 0.2-1.0 mg/dL Aspartate Amino Transferase (AST) < 8 L 13-40 U/L Alanine Aminotransferase (ALT) < 9 7-40 U/L Alkaline Phosphatase 103 46-116 U/L Troponin I High Sensitivity 31 </=34 ng/L Total Protein 7.3 5.7-8.2 g/dL Albumin 4.0 3.2-4.8 g/dL [address] [address] Ph: [phone] DIAGNOSTIC IMAGING Diagnostic Imaging Report : [id number] Signed PATIENT: JOSE ALCALA ACCT: [id number] UNIT: [id number] : 1940 LOC: ER ROOM / BED: / AGE / SEX: 84 / F ADM STATUS: REG ER SERVICE 1251 ORDERING PHYSICIAN: MACKENZIE FRANCOIS DO PROCEDURE(s): CXRP - CHEST PORTABLE REASON: CHEST PAIN ORDER NUMBER(s): [id number], ACCESSION NUMBER(s): [id number] EXAM: XY CHEST PORTABLE Indication: CHEST PAIN Technique: Single frontal view of the chest was obtained Comparison: XY CHEST PORTABLE on DOS: 12/21/23, XY CHEST PORTABLE on DOS: 07/15/23, CHEST PORTABLE on DOS: 03/25/21, CHEST XRAY 1 VIEW on DOS: 01/19/21, CXR1 on DOS: 01/19/21 FINDINGS: Lines and Tubes: Right tunneled dialysis catheter tip projects over the superior vena cava. Lungs: No focal consolidation. Pleura: Trace left pleural effusion. No pneumothorax. Cardiomediastinal contours: Cardiomegaly. Bones: No acute osseous abnormality. IMPRESSION: Trace left pleural effusion. ATED BY: SIMONA CHINO MD DICTATED DATE/TIME: 03/24/24 1321 SIGNED BY: SIMONA CHINO MD SIGNED DATE/TIME: 03/24/24 1321 CC: Time of 1ST Reevaluation: 12:47 Reevaluation 1ST: Unchanged Time of 2ND Reevaluation: 17:02 (The case was discussed with the admitting team (HPI, physical exam, labs and diagnostic tests that were available at the time of disposition, ED course, treatment plan) on the phone. They agreed to evaluate the patient and make the appropriate disposition -Mirtha douglas. He said he is familiar with this patient.) Patient Education/Counseling: Diagnosis, Treatment Family Education/Counseling: No Family Present Comments I placed the patient for admission but I was later made aware that the admitting doctor Chadwick has discharge the patient. Patient refused medications. Patient refused 3rd troponin. Patient presented with the above HPI.--cardiac----workup was initiated. patient was found with the above mentioned diagnosis. Patient was given: Nitroglycerin, hydralazine were ordered Patient ED course and VS have been stabilized. Patient has been reassessed in the ED and remained in a stable condition. Pertinent incidental findings were discussed with the patient and/or family. Patient/family voices understanding and is agreeable with plan. Patient has been observed in the ED adequate length of time to insure improvement/stability. patient was admitted to the medicine team for further evaluation and treatment of their presentation. However patient was discharged by the medicine team. Please see their consultation notes. All the reports of any imaging studies that were ordered by myself were reviewed by myself. Departure 1 Departure Time of Disposition: 13:06 Impression: Primary Impression: Chest pain Additional Impressions: Atrial fibrillation End stage renal disease on dialysis Elevated d-dimer Disposition: ADMITTED INPATIENT Admit to: Tele Condition: Guarded Discharged With: Self Critical Care Note Critical Care Time?: No Heart Score Heart Score: Heart Score Response (Comments) Value History Moderate Suspicious 1 EKG Normal 0 Age >65 2 Risk Factors >3 or Hx ASHD 2 Troponin Normal limit 0 Total 5 I personally scribed for MACKENZIE FRANCOIS DO ([email or web address]) on 03/24/24 at 12:50. Electronically submitted by Kathi Armando ([facility]). I personally scribed for MACKENZIE FRANCOIS DO ([email or web address]) on 03/24/24 at 16:25. Electronically submitted by Kathi Armando ([facility]). MACKENZIE FRANCOIS DO Mar 24, 2024 12:50
[2024-03-24 13:09] LABS: Basophils # (auto) 0 10 ^3/uL (0-0.2); Basophils % (auto) 0.3 % (0.0-2.0); Eosinophils # (auto) 0.2 10 ^3/uL (0-0.8); Eosinophils % (auto) 2.3 % (0.0-7.0); Hematocrit 33.2 % (36.0-46.0); Hemoglobin 9.9 g/dL (12.2-16.2); Lymphocytes # (auto) 0.8 10 ^3/uL (0.4-5.4); Lymphocytes % (auto) 10.3 % (10.0-50.0); Mean Corpuscular Volume 113.3 fL (80.0-100.0); Monocytes # (auto) 0.5 10 ^3/uL (0-1.3); Monocytes % (auto) 5.8 % (0.0-12.0); Neutrophils # (auto) 6.7 10 ^3/uL (1.6-8.6); Neutrophils % (auto) 81.3 % (37.0-80.0); Nucleated Red Blood Cells % 0.1 %; Platelet Count (auto) 265 10^3/uL (140-450); Red Blood Cells 2.92 10^6/uL (4.0-5.20); Red Cell Distribution Width 16.2 % (11.8-14.3); White Blood Cell 8.2 10^3/uL (4.4-10.8)
--- NOTE | 2024-03-24 13:22 | DVH ---
EXAM: XY CHEST PORTABLE Indication: CHEST PAIN Technique: Single frontal view of the chest was obtained Comparison: XY CHEST PORTABLE on DOS: 12/21/23, XY CHEST PORTABLE on DOS: 07/15/23, CHEST PORTABLE on D OS: 03/25/21, CHEST XRAY 1 VIEW on DOS: 01/19/21, CXR1 on DOS: 01/19/21 FINDINGS: Lines and Tubes: Right tunneled dialysis catheter tip projects over the superior vena cava. Lungs: No focal consolidation. Pleura: Trace left pleural effusion. No pneumothorax. Cardiomediastinal contours: Cardiomegaly. Bones: No acute osseous abnormality. IMPRESSION: Trace left pleural effusion.
[2024-03-24 13:27] LABS: INR 0.97 (0.9-1.15); Prothrombin Time 10.3 sec (9.3-11.8)
[2024-03-24] MEDS: NITROGLYCERIN 0.4 MG SL TAB SL ONE ×3 (13:55→19:53)
[2024-03-24 14:27] LABS: Alkaline Phosphatase 103 U/L (46-116); Anion Gap 16 (5-15); Aspartate Aminotransferase < 8 U/L (13-40); BUN/Creatinine Ratio 10.2 (10.0-20.0); Calcium 8.1 mg/dL (8.7-10.4); Carbon Dioxide 15 mmol/L (20-31); Chloride 105 mmol/L (98-107); Glucose 229 mg/dL (74-106); Potassium 5.2 mmol/L (3.5-5.1); Sodium 136 mmol/L (136-145)
[2024-03-24 14:28] LABS: Bilirubin, Total 0.2 mg/dL (0.2-1.0); Total Protein 7.3 g/dL (5.7-8.2)
[2024-03-24 14:30] LABS: Alanine Aminotransferase < 9 U/L (7-40); Blood Urea Nitrogen 91 mg/dL (9-23)
[2024-03-24] MEDS: hydrALAZINE HCL 20 MG/ML VL IV ONE (16:15)
[2024-03-24] MEDS: cloNIDine HCL 0.1 MG TAB PO ONE (17:29)
--- NOTE | 2024-03-24 19:11 | ECG ---
[facility] Test Date: 2024-03-24 Test Time: 13:30:53 Pat Name: JOSE ALCALA Department: ED Room: [address] [place] [address] Gender: F Executive Officer: TAMIKA : 1940 Requested By: MACKENZIE FRANCOIS Order Number: [id number] Reading MD: Samir Burk Measurements Intervals [place] Rate: 83 P: 51 IA: 156 QRS: 9 QRSD: 94 T: 33 QT: 418 QTc: 492 Interpretive Statements Sinus rhythm Borderline prolonged QT interval Electronically Signed On 03-25-2024 17:44:56 PST by Samir Burk Please click the below link to view image of tracing.
--- NOTE | 2024-03-24 19:12 | ECG ---
[facility] Test Date: 2024-03-24 Test Time: 15:33:54 Pat Name: JOSE ALCALA Department: ED Room: [address] [place] [address] A Gender: F Funeral Arrangement Director: TAMIKA : 1940 Requested By: MACKENZIE FRANCOIS Order Number: [id number] Reading MD: Samir Burk Measurements Intervals [place] Rate: 80 P: 21 MD: 154 QRS: -2 QRSD: 92 T: 26 QT: 425 QTc: 491 Interpretive Statements Sinus rhythm Atrial premature complex Borderline prolonged QT interval Electronically Signed On 03-25-2024 17:45:41 PST by Samir Burk Please click the below link to view image of tracing.
[2024-03-24 20:12] VITALS: BP 169/63; PULSE 73; RESP 18; TEMP 98.3; O2SAT 98
--- NOTE | 2024-03-25 10:46 | DVHDS2 ---
New Physician D'charge PN Admitting Diagnosis Admitting Diagnosis CP Discharge Diagnosis cp trops negative esrd on hd uncontrolled htn Operations or Procedures NONE Reason(s) For Hospitalization Surgery Hospital Course 84 F with CP from earlier today came to ER for this complaint, she is a esrd patient and gets dialysis 3x/week. when she arrived her BP was 190 systolic and given her cp i was phoned to admit the patoent to the hospital for further care. i reviewed her chart and labs and patient had normal cardiac enzymes and normal cbc. her chem panel showed an elevated Cr of 8 however the patient is ESRD and gets dialysis 3x per week. i decided to give her clonidine 0.2 mg po x1 for her elevated bp and her SBP came down to 168. her cp resolved once her bp was controlled and her ekg revealed no acute findings suggestive of ischemia. her cardiac enzymes were negative x2. i will discharge her home with outpt cardio follow up and she will resume her nml HD sessions as scheduled outpt. pt to resume her bp meds as prescribed at home and will arrange for pcp follow up as well. Treatment Plan Discharge Condition of Discharge Good Disposition Home Discharge Instructions Diet: Renal Activity: No Restrictions, As Tolerated Medications: see med sheet Follow Up Care Follow Up/Referral: pcp renal Discharge Statement: "Patient was advised to return to the ER or call 911 if any headaches, dizziness, shortness of breath, chest pain, abdominal pain, bleeding, fevers, or worsening of medical condition. Patient was counseled about treatment plan, medications, possible side effects, patientverbalized understanding. All questions were answered to the best of my ability. This discharge took greater then 30 minutes in planning, reviewing documentation, counseling the patient, and discussing with other team members." COLE PALMER MD Mar 25, 2024 10:46
--- NOTE | 2024-03-25 11:54 | ECG ---
[facility] Test Date: 2024-03-24 Test Time: 12:42:20 Pat Name: JOSE ALCALA Department: ED Room: Gender: F Account Executive Software Sales: DELILAH : 1940 Requested By: MACKENZIE FRANCOIS Order Number: [id number] Reading MD: Samir Burk Measurements Intervals [place] Rate: 95 P: 0 CT: 0 QRS: 9 QRSD: 162 T: 2 QT: 399 QTc: 502 Interpretive Statements Atrial fibrillation Probable left ventricular hypertrophy Prolonged QT interval Electronically Signed On 03-25-2024 17:44:47 PST by Samir Burk Please click the below link to view image of tracing.
== END 2024-03-24 19:38 | disposition home or self-care (01) ==
LOC: ER 12:36 → OVERFLOW 12:50 → UNDOADMIN 12:50 → ER 19:38
DX: R07.89 Other chest pain (principal); I48.91 Unspecified atrial fibrillation; E11.22 Type 2 diabetes mellitus with diabetic chronic kidney disease; I12.0 Hypertensive chronic kidney disease with stage 5 chronic kidney disease or end stage renal disease; N18.6 End stage renal disease; E78.5 Hyperlipidemia, unspecified; J44.9 Chronic obstructive pulmonary disease, unspecified; J90 Pleural effusion, not elsewhere classified; R79.89 Other specified abnormal findings of blood chemistry; Z79.82 Long term (current) use of aspirin; Z79.84 Long term (current) use of oral hypoglycemic drugs; Z79.899 Other long term (current) drug therapy; Z86.73 Personal history of transient ischemic attack (TIA), and cerebral infarction without residual deficits; Z90.49 Acquired absence of other specified parts of digestive tract; Z90.710 Acquired absence of both cervix and uterus; Z99.2 Dependence on renal dialysis
CPT/HCPCS: 36415; 71045; 80053; 84484; 85025; 85379; 85610; 85730; 93005; 99285; J0360

== ENCOUNTER 2024-03-27 20:30 | Emergency (ER) | payer OTHER ==
[~2024-03-27] VITALS: Ht 165.1 cm; Wt 84.0 kg
--- NOTE | 2024-03-27 20:52 | ED.PDOC ---
History of Present Illness HPI Comments 84 y/o F, with a Hx of breast CA, CHF, CVA, DM, ESRD w/HD M/W/F, 2LPM PRN home O2, HLD, HTN, and TIA, is BIBA for c/o shortness of breath, chest pain, and bilateral leg swelling for 1 week, today. Per EMS report, patient endorses on symptoms progressively worsening since initial onset. Patient's chest pain is stated to be diffused across her entire chest wall. Patient is also reported to have missed dialysis for 1 week in addition to have a Hx of noncompliance with attending her appointments. On scene, patient was found with a blood glucose of 292 and hypertensive, with a systolic pressure in the 200's and all remaining vitals within normal limits. Patient denies having any cough, dyspnea, palpitations, fever, chills, or other associated symptoms or modifiers at this time. Time Seen by MD: 20:30 Primary Care Provider: unknown Reviewed Notes: Nurses Notes, Insurance Writer Notes, Medications, Allergies Allergies: Coded Allergies: NO KNOWN ALLERGIES (Unverified , 05/31/19) Home Meds Active Scripts Furosemide (Furosemide) 40 Mg Tab, 40 MG PO BIDD for 30 Days, #60 TAB 1 Refill Prov:SUNDAY BARNEY DO 12/23/23 Amlodipine Besylate (NORVASC TABLET) 5 Mg Tb, 10 MG PO DAILY for 30 Days, #60 TA B 1 Refill Prov:SUNDAY BARNEY DO 12/23/23 Carvedilol (COREG) 12.5 Mg Tab, 12.5 MG PO Q12HR for 30 Days, #60 TAB 1 Refill Prov:SUNDAY BARNEY DO 12/23/23 Lisinopril (Lisinopril) 5 Mg Tab, 5 MG PO DAILY for 30 Days, #30 TAB 1 Refill Prov:SUNDAY BARNEY 12/23/23 Atorvastatin Calcium (ATORVASTATIN CALCIUM) 20 Mg Tab, 40 MG PO HS for 30 Days, #60 TAB 1 Refill Prov:SUNDAY BARNEY DO 12/23/23 Reported Medications Insulin Lispro (Human) (Humalog) 100 Mg/Ml Inj, 30 MG SC HS, INJ 09/11/17 Insulin Glargine (Lantus) 100 Unit/Ml Inj, SC BS, INJ 09/11/17 Sitagliptin Phosphate (Januvia) 100 Mg Tab, 1 TAB PO DAILY, #30 TAB 5 Refills 09/11/17 Pregabalin (Lyrica) 100 Mg Cap, 1 CAP PO BID, #60 CAP 2 Refills 09/11/17 Aspirin (Aspir-Low) 81 Mg Tab, 81 MG PO DAILY for 30 Days, MG 09/11/17 Information Source: Patient, Emergency Med Personnel Mode of Arrival: EMS Severity: Moderate Timing: Weeks Duration: Since onset Prehospital treatment: 12 Lead EKG, Accucheck, Time Recorder, Oxygen Past Medical History PAST MEDICAL HISTORY: Cancer (breast ), CHF, CKF, CVA, DM, ESRD (w/HD M/W/F), High Lipids, HTN, TIA Surgical History: Appendectomy, , Hysterectomy Surgical History (Other): HD catheter in right upper chest wall and right upper arm STALLION MANAGER History: No Pertinent STALLION MANAGER History Family History Family History: No family hx of Cancer, Family hx of DM, Family hx of HTN Social History Smoker: Non-Smoker Alcohol: Denies ETOH Use Drugs: Denies Drug Use Lives In: Home Constitutional: denies: chills, diaphoresis, fatigue, fever, malaise, sweats, weakness, others EENTM: denies: blurred vision, double vision, ear bleeding, ear discharge, ear drainage, ear pain, ear ringing, eye pain, eye redness, hearing loss, mouth waldo n, mouth swelling, nasal discharge, nose bleeding, nose congestion, nose pain, photophobia, tearing, throat pain, throat swelling, voice changes, others Respiratory: reports: shortness of breath; denies: cough, hemoptysis, orthopnea, SOB at rest, SOB with excertion, stridor, wheezing, others Cardiovascular: reports: chest pain; denies: dizzy spells, diaphoresis, Dyspnea on exertion, edema, irregular heart beat, left arm pain, lightheadedness, palpitations, PND, syncope, others Gastrointestinal: denies: abdomen distended, abdominal pain, blood streaked bowels, constipated, diarrhea, dysphagia, difficulty swallowing, hematemesis, melena, nausea, poor appetite, poor fluid intake, rectal bleeding, rectal pain, vomiting, others Genitourinary: denies: abnormal vagina bleeding, burning, dyspareunia, dysuria, flank pain, frequency, hematuria, incontinence, pain, , vagina discharge, urgency, others Neurological: denies: dizziness, fainting, headache, left sided numbness, left sided weakness, numbness, paresthesia, pre-existing deficit, right sided numbness, right sided weakness, seizure, speech problems, tingling, tremors, weakness, others Musculoskeletal: reports: others (bilateral leg swelling ); denies: back pain, gout, joint pain, joint swelling, muscle pain, muscle stiffness, neck pain Integumetry: denies: bruises, change in color, change in hair/nails, dryness, laceration, lesions, lumps, rash, wounds, others Allergic/Immunocompromised: denies: Difficulty Healing, Frequent Infections, Hives, Itching, others Hematologic/Lymphatic: denies: anemia, blood clots, easy bleeding, easy bruising, swollen glands, others Endocrine: denies: excessive hunger, excessive sweating, excessive thirst, excessive urination, flushing, intolerance to cold, intolerance to heat, unexplained weight gain, unexplained weight loss, others Psychiatric: denies: anxiety, bipolar disorder, depression, hopeless, panic disorder, schizophrenia, sleepless, suicidal, others All Other Systems: Reviewed and Negative Physical Exam General Appearance: Moderate Distress, Normal HEENT: Normal ENT Inspection, Pharynx Normal, TMs Normal Neck: Full Range of Motion, Non-Tender, Normal, Normal Inspection Respiratory: Rales, Respiratory Distress, Rhonchi Cardiovascular: No Edema, No JVD, No Murmur, No Gallop, Normal Peripheral Pulses, Regular Rate/Rhythm, Other (shunt right arm and right chest) Breast Exam: Deferred Gastrointestinal: No Organomegaly, Non Tender, No Pulsatile Mass, Normal Bowel Sounds, Soft Genitalia: Deferred Pelvic: Deferred Rectal: Deferred Extremities: No calf tenderness, Normal capillary refill, Normal inspection, Normal range of motion, Non-tender, No pedal edema Musculoskeletal : Apperance: Normal Neurologic: Alert, skimmer reverberatory II-XII nml as Tested, No Motor Deficits, Normal Affect, Normal Mood, No Sensory Deficits Cerebellar Function: Normal Reflexes: Normal Skin: Dry, Normal Color, Warm Lymphatic: No Adenopathy Was a procedure done? Was a procedure done?: No EKG EKG : Pulse Rate (adult): 107 [place]: Normal Cardiac Rhythm: ST Block: None Hypertrophy: None ST: Normal Differential Dx Considerations may include: CHF exacerbation, fluid overload, pleural effusion, bronchitis, PNA, Covid19, URI, PE, AR X-Ray, Labs, Meds, VS Vital Signs Date Time Temp Pulse Resp B/P (MAP) Pulse Ox O2 Delivery O2 Flow Rate FiO2 03/27/24 21:13 97.7 101 13 174/102 (126) 100 97.7 03/27/24 21:13 101 13 100 Nasal Cannula* 3 32 03/27/24 20:52 107 03/27/24 20:43 97.8 110 24 201/90 (127) 99 03/27/24 20:30 107 Lab Test 03/27/24 20:50 Range/Units White Blood Count 9.6 4.4-10.8 10^3/uL Red Blood Count 2.88 L 4.0-5.20 10^6/uL Hemoglobin 9.5 L 12.2-16.2 g/dL Hematocrit 29.0 #L 36.0-46.0 % Mean Corpuscular Volume 100.9 #H 80.0-100.0 fL Mean Corpuscular Hemoglobin 33.1 H 28.0-32.0 pg Mean Corpuscular Hemoglobin Concent 32.8 32.0-36.0 g/dL Red Cell Distribution Width 14.7 H 11.8-14.3 % Platelet Count 240 140-450 10^3/uL Mean Platelet Volume 8.4 6.9-10.8 fL Neutrophils (%) (Auto) 78.8 37.0-80.0 % Lymphocytes (%) (Auto) 12.2 10.0-50.0 % Monocytes (%) (Auto) 6.2 0.0-12.0 % Eosinophils (%) (Auto) 2.5 0.0-7.0 % Basophils (%) (Auto) 0.3 0.0-2.0 % Neutrophils # (Auto) 7.5 1.6-8.6 10 ^3/uL Lymphocytes # (Auto) 1.2 0.4-5.4 10 ^3/uL Monocytes # (Auto) 0.6 0-1.3 10 ^3/uL Eosinophils # (Auto) 0.2 0-0.8 10 ^3/uL Basophils # (Auto) 0 0-0.2 10 ^3/uL Nucleated Red Blood Cells 0.1 % Sodium Level 138 136-145 mmol/L Potassium Level 4.4 3.5-5.1 mmol/L Chloride Level 104 98-107 mmol/L Carbon Dioxide Level 21 20-31 mmol/L Anion Gap 13 5-15 Blood Urea Nitrogen 77 H 9-23 mg/dL Creatinine 7.46 H 0.550-1.02 mg/dL Glomerular Filtration Rate Calc 5 >90 mL/min BUN/Creatinine Ratio 10.3 10.0-20.0 Serum Glucose 280 H 74-106 mg/dL Calcium Level 7.9 L 8.7-10.4 mg/dL Magnesium Level 2.4 1.6-2.6 mg/dL Total Bilirubin < 0.2 L 0.2-1.0 mg/dL Aspartate Amino Transferase (AST) < 8 L 13-40 U/L Alanine Aminotransferase (ALT) < 9 7-40 U/L Alkaline Phosphatase 117 H 46-116 U/L Total Protein 7.5 5.7-8.2 g/dL Albumin 4.1 3.2-4.8 g/dL Time of 1ST Reevaluation: 21:00 Reevaluation 1ST: Unchanged Patient Education/Counseling: Diagnosis, Treatment Family Education/Counseling: No Family Present Additional Information I independently reviewed and interpreted lab results, chest xray and EKG findings Departure 1 Departure Time of Disposition: 21:55 Impression: Primary Impression: End stage renal disease on dialysis Additional Impression: Fluid overload Disposition: ADMITTED INPATIENT Admit to: Tele Condition: Guarded Discharged With: Self Critical Care Note Critical Care Time?: Yes Critical care comment: due to the real possibility of patient's condition deteriorating, his care requires my highest attention and readiness to intervene. i assessed the patient, ordered the proper tests and treatments, reassessed him for response, formulated a plan, discussed it with medical personnel, and consultants,. total time include more than 50% face to face contact and does not include any procedures Stability Stability form required: No Heart Score Heart Score: Heart Score Response (Comments) Value History Moderate Suspicious 1 EKG Normal 0 Age >65 2 Risk Factors >3 or Hx ASHD 2 Troponin N/A 0 Total 5 I personally scribed for ADRIANA COLBERT MD ([email or web address]) on 11/24/24 at 20:52. Electronically submitted by Clark Byrne ([email or web address]). ADRIANA COLBERT MD Mar 27, 2024 20:52
[2024-03-27 21:13] VITALS: PULSE 101; RESP 13; TEMP 97.7; O2SAT 100
[2024-03-27 21:18] LABS: Basophils # (auto) 0 10 ^3/uL (0-0.2); Basophils % (auto) 0.3 % (0.0-2.0); Eosinophils # (auto) 0.2 10 ^3/uL (0-0.8); Eosinophils % (auto) 2.5 % (0.0-7.0); Hemoglobin 9.5 g/dL (12.2-16.2); Lymphocytes # (auto) 1.2 10 ^3/uL (0.4-5.4); Lymphocytes % (auto) 12.2 % (10.0-50.0); Mean Corpuscular Hemoglobin 33.1 pg (28.0-32.0); Mean Corpuscular Hgb Conc. 32.8 g/dL (32.0-36.0); Mean Corpuscular Volume 100.9 fL (80.0-100.0); Monocytes # (auto) 0.6 10 ^3/uL (0-1.3); Monocytes % (auto) 6.2 % (0.0-12.0); Neutrophils # (auto) 7.5 10 ^3/uL (1.6-8.6); Neutrophils % (auto) 78.8 % (37.0-80.0); Nucleated Red Blood Cells % 0.1 %; Platelet Count (auto) 240 10^3/uL (140-450); Red Blood Cells 2.88 10^6/uL (4.0-5.20); Red Cell Distribution Width 14.7 % (11.8-14.3); White Blood Cell 9.6 10^3/uL (4.4-10.8)
[2024-03-27 21:33] LABS: Albumin 4.1 g/dL (3.2-4.8); Alkaline Phosphatase 117 U/L (46-116); Anion Gap 13 (5-15); Aspartate Aminotransferase < 8 U/L (13-40); BUN/Creatinine Ratio 10.3 (10.0-20.0); Bilirubin, Total < 0.2 mg/dL (0.2-1.0); Blood Urea Nitrogen 77 mg/dL (9-23); Calcium 7.9 mg/dL (8.7-10.4); Carbon Dioxide 21 mmol/L (20-31); Chloride 104 mmol/L (98-107); Glucose 280 mg/dL (74-106); Magnesium 2.4 mg/dL (1.6-2.6); Potassium 4.4 mmol/L (3.5-5.1); Sodium 138 mmol/L (136-145); Total Protein 7.5 g/dL (5.7-8.2)
[2024-03-27 21:35] LABS: Alanine Aminotransferase < 9 U/L (7-40)
--- NOTE | 2024-03-27 21:44 | DVH ---
CHEST RADIOGRAPH Indication: SOB Technique: Single frontal view of the chest was obtained Comparison: XY CHEST PORTABLE on DOS: 03/24/24, XY CHEST PORTABLE on DOS: 12/21/23, XY CHEST PORTABLE on DOS: 07/15/23 Findings/ IMPRESSION: 1. Right IJ HD catheter with tip terminating in the right atrium. Small left-sided pleural effusion a nd/or atelectasis. No pneumothorax.
[2024-03-27] MEDS ORDERED: NITROGLYCERIN 0.2MG/HR TOPICAL PATCH TD ONE (22:15)
[2024-03-27] MEDS ORDERED: CLON0.2T PO (22:36)
[2024-03-27] MEDS: cloNIDine HCL 0.1 MG TAB PO ONE (22:42)
[2024-03-27 23:32] VITALS: BP 196/75; PULSE 91; RESP 18; O2SAT 99
--- NOTE | 2024-03-28 06:57 | ECG ---
[facility] Test Date: 2024-03-27 Test Time: 20:30:32 Pat Name: JOSE ALCALA Department: ER Room: Gender: F Pan Shaker: : 1940 Requested By: ADRIANA COLBERT Order Number: [id number] Reading MD: Samir Burk Measurements Intervals [place] Rate: 107 P: 29 [place]: 152 QRS: 23 QRSD: 104 T: 52 QT: 363 QTc: 485 Interpretive Statements Sinus tachycardia Borderline ST depression, lateral leads Electronically Signed On 03-29-2024 8:26:15 PST by Samir Burk Please click the below link to view image of tracing.
== END 2024-03-27 23:41 | disposition home or self-care (01) ==
LOC: EDBD 20:30 → ER 20:30
DX: E11.22 Type 2 diabetes mellitus with diabetic chronic kidney disease (principal); I13.2 Hypertensive heart and chronic kidney disease with heart failure and with stage 5 chronic kidney disease, or end stage renal disease; I50.9 Heart failure, unspecified; N18.6 End stage renal disease; E87.70 Fluid overload, unspecified; E78.5 Hyperlipidemia, unspecified; Z79.82 Long term (current) use of aspirin; Z79.84 Long term (current) use of oral hypoglycemic drugs; Z79.899 Other long term (current) drug therapy; Z85.3 Personal history of malignant neoplasm of breast; Z86.73 Personal history of transient ischemic attack (TIA), and cerebral infarction without residual deficits; Z90.49 Acquired absence of other specified parts of digestive tract; Z90.710 Acquired absence of both cervix and uterus; Z91.158 Patient's noncompliance with renal dialysis for other reason; Z99.2 Dependence on renal dialysis
CPT/HCPCS: 36415; 71045; 80053; 83735; 85025; 93005; 99291

== ENCOUNTER 2024-04-20 07:57 | Inpatient (IN) | payer OTHER ==
[~2024-04-20] VITALS: Ht 165.1 cm; Wt 74.8 kg
[~2024-04-20 07:57] MED LIST changes: +CLON0.2T PO
[2024-04-20 09:00] VITALS: PULSE 85; RESP 20; O2SAT 92
--- NOTE | 2024-04-20 09:44 | ED.PDOC ---
History of Present Illness HPI Comments 84 Y F, BIBA with PMHX of HTN, HLD, CHF, ESRD, and DM, presents to the ED with CC of generalized weakness. Per EMS, patient reports feeling dizzy since 0530 this morning, with associated flu-like symptoms that have not resolved for 3 weeks. Patient sates, that symptoms worsen after receiving dialysis. Patient relays that she is also experiencing intermittent abdominal pain. Patient denies any chest pain, N/V/D, headache, fever, or chills. Chief Complaint: General Weakness Time Seen by MD: 09:10 Primary Care Provider: CLAIRE Reviewed Notes: Nurses Notes, Supervisor Wall Mirror Department Notes, Medications, Allergies Allergies: Coded Allergies: NO KNOWN ALLERGIES (Unverified , 05/31/19) Home Meds Active Scripts Clonidine Hydrochloride (Clonidine Hcl) 0.2 Mg Tab, 0.2 MG PO BID PRN for 20 Days, #60 TAB 3 Refills Prov:ADRIANA COLBERT MD 03/27/24 Furosemide (Furosemide) 40 Mg Tab, 40 MG PO BIDD for 30 Days, #60 TAB 1 Refill Prov:SUNDAY BARNEY DO 12/23/23 Amlodipine Besylate (NORVASC TABLET) 5 Mg Tb, 10 MG PO DAILY for 30 Days, #60 TAB 1 Refill Prov:SUNDAY BARNEY DO 12/23/23 Carvedilol (COREG) 12.5 Mg Tab, 12.5 MG PO Q12HR for 30 Days, #60 TAB 1 Refill Prov:SUNDAY BARNEY DO 12/23/23 Lisinopril (Lisinopril) 5 Mg Tab, 5 MG PO DAILY for 30 Days, #30 TAB 1 Refill Prov:SUNDAY BARNEY DO 12/23/23 Atorvastatin Calcium (ATORVASTATIN CALCIUM) 20 Mg Tab, 40 MG PO HS for 30 Days, #60 TAB 1 Refill Prov:SUNDAY BARNEY DO 12/23/23 Reported Medications Insulin Lispro (Human) (Humalog) 100 Mg/Ml Inj, 30 MG SC HS, INJ 09/11/17 Insulin Glargine (Lantus) 100 Unit/Ml Inj, SC BS, INJ 09/11/17 Sitagliptin Phosphate (Januvia) 100 Mg Tab, 1 TAB PO DAILY, #30 TAB 5 Refills 09/11/17 Pregabalin (Lyrica) 100 Mg Cap, 1 CAP PO BID, #60 CAP 2 Refills 09/11/17 Aspirin (Aspir-Low) 81 Mg Tab, 81 MG PO DAILY for 30 Days, MG 09/11/17 Information Source: Patient, Emergency Med Personnel Mode of Arrival: EMS Severity: Mild Timing: Days Duration: Days Prehospital treatment: None Past Medical History PAST MEDICAL HISTORY: Cancer, CHF, CKF, CVA, DM, ESRD, High Lipids, HTN, TIA Surgical History: Appendectomy, , Hysterectomy CAUSTIC STRENGTH INSPECTOR History: No Pertinent CAUSTIC STRENGTH INSPECTOR History Family History Family History: No family hx of Cancer, Family hx of DM, Family hx of HTN Social History Smoker: Non-Smoker Alcohol: Denies ETOH Use Drugs: Denies Drug Use Lives In: Home Constitutional: reports: weakness; denies: chills, diaphoresis, fatigue, fever, malaise, sweats, others EENTM: denies: blurred vision, double vision, ear bleeding, ear discharge, ear drainage, ear pain, ear ringing, eye pain, eye redness, hearing loss, mouth pain, mouth swelling, nasal discharge, nose bleeding, nose congestion, nose pain, photophobia, tearing, throat pain, throat swelling, voice changes, others Respiratory: denies: cough, hemoptysis, orthopnea, SOB at rest, shortness of breath, SOB with excertion, stridor, wheezing, others Cardiovascular: denies: chest pain, dizzy spells, diaphoresis, Dyspnea on exertion, edema, irregular heart beat, left arm pain, lightheadedness, palpitations, PND, syncope, others Gastrointestinal: reports: abdominal pain, nausea; denies: abdomen distended, blood streaked bowels, constipated, diarrhea, dysphagia, difficulty swallowing, hematemesis, melena, poor appetite, poor fluid intake, rectal bleeding, rectal pain, vomiting, others Genitourinary: denies: abnormal vagina bleeding, burning, dyspareunia, dysuria, flank pain, frequency, hematuria, incontinence, pain, , vagina discharge, urgency, others Neurological: denies: dizziness, fainting, headache, left sided numbness, left sided weakness, numbness, paresthesia, pre-existing deficit, right sided numbness, right sided weakness, seizure, speech problems, tingling, tremors, weakness, others Musculoskeletal: denies: back pain, gout, joint pain, joint swelling, muscle pain, muscle stiffness, neck pain, others Integumetry: denies: bruises, change in color, change in hair/nails, dryness, laceration, lesions, lumps, rash, wounds, others Allergic/Immunocompromised: denies: Difficulty Healing, Frequent Infections, Hives, Itching, others Hematologic/Lymphatic: denies: anemia, blood clots, easy bleeding, easy bruising, swollen glands, others Endocrine: denies: excessive hunger, excessive sweating, excessive thirst, excessive urination, flushing, intolerance to cold, intolerance to heat, unexplained weight gain, unexplained weight loss, others Psychiatric: denies: anxiety, bipolar disorder, depression, hopeless, panic disorder, schizophrenia, sleepless, suicidal, others All Other Systems: Reviewed and Negative Physical Exam General Appearance: Mild Distress, Normal, Other (Patient dehydrated with a generalized weakness post dialysis this morning) HEENT: Normal ENT Inspection, Pale [place] (L), Pale Conj[place]ivae (R), PERRL/EOMI, Pharynx Normal, TMs Normal Neck: Full Range of Motion, Non-Tender, Normal, Normal Inspection Respiratory: Chest Non-Tender, Lungs Clear, No Accessory Muscle Use, No Respiratory Distress, Normal Breath Sounds Cardiovascular: No Edema, No JVD, No Murmur, No Gallop, Normal Peripheral Pulses, Regular Rate/Rhythm Breast Exam: Deferred Gastrointestinal: Diffuse, No Organomegaly, No Pulsatile Mass, Normal Bowel Sounds, Soft, Tenderness Genitalia: Deferred Pelvic: Deferred Rectal: Deferred Extremities: Decreased range of motion, No calf tenderness, Normal capillary refill, Normal inspection, Non-tender, No pedal edema Musculoskeletal : Apperance: Normal Neurologic: Depressed Affect, Dizziness, Motor Weakness, No Sensory Deficits Cerebellar Function: Unable to Test Reflexes: NOT DONE Skin: Dry, Pallor, Warm Peripheral Pulses: 1+ carotid (R), 1+ carotid (L) Lymphatic: No Adenopathy Was a procedure done? Was a procedure done?: No EKG EKG : Pulse Rate (adult): 87 Cardiac Rhythm: PVC's Hypertrophy: ELANA, RVH Differential Dx Considerations may include: generalized weakness, syncope, gastritis dehydration sepsis renal failure on dialysis altered electrolytes X-Ray, Labs, Meds, VS Vital Signs Date Time Temp Pulse Resp B/P (MAP) Pulse Ox O2 Delivery O2 Flow Rate FiO2 04/20/24 14:46 87 04/20/24 12:00 79 04/20/24 08:32 85 04/20/24 08:09 87 04/20/24 07:59 100.3 84 20 151/63 (92) 99 Lab Test 04/20/24 13:45 04/20/24 10:19 Range/Units White Blood Count 25.8 H 4.4-10.8 10^3/uL Red Blood Count 3.02 L 4.0-5.20 10^6/uL Hemoglobin 9.8 L 12.2-16.2 g/dL Hematocrit 30.7 L 36.0-46.0 % Mean Corpuscular Volume 101.6 H 80.0-100.0 fL Mean Corpuscular Hemoglobin 32.5 H 28.0-32.0 pg Mean Corpuscular Hemoglobin Concent 32.0 32.0-36.0 g/dL Red Cell Distribution Width 15.0 H 11.8-14.3 % Platelet Count 196 140-450 10^3/uL Mean Platelet Volume 7.9 6.9-10.8 fL Neutrophils (%) (Auto) 37.0-80.0 % Lymphocytes (%) (Auto) 10.0-50.0 % Monocytes (%) (Auto) 0.0-12.0 % Basophils (%) (Auto) 0.0-2.0 % Neutrophils # (Auto) 1.6-8.6 10 ^3/uL Lymphocytes # (Auto) 0.4-5.4 10 ^3/uL Monocytes # (Auto) 0-1.3 10 ^3/uL Differential Total Cells Counted 100.0 100 Neutrophils % (Manual) 75 37.0-80.0 Band Neutrophils % (Manual) 17 Lymphocytes % (Manual) 3 L 10.0-50.0 Monocytes % (Manual) 5 0-12 Eosinophils % (Manual) 0 0-7 Basophils % (Manual) 0 0.0-2.0 Metamyelocytes % (manual) 0 Myelocytes % (Manual) 0 Promyelocytes % (Manual) 0 Blast Cells % (Manual) 0 Reactive Lymphocytes 0 Platelet Estimate Adequate Lactic Acid Level 1.6 2.2 *H 0.4-2.0 mmol/L D-Dimer, Quantitative 12.51 H 0.0-0.49 mg/L FEU Sodium Level 135 L 136-145 mmol/L Potassium Level 4.0 3.5-5.1 mmol/L Chloride Level 102 98-107 mmol/L Carbon Dioxide Level 22 20-31 mmol/L Anion Gap 11 5-15 Blood Urea Nitrogen 42 H 9-23 mg/dL Creatinine 6.87 H 0.550-1.02 mg/dL Glomerular Filtration Rate Calc 6 >90 mL/min BUN/Creatinine Ratio 6.1 L 10.0-20.0 Serum Glucose 218 H 74-106 mg/dL Calcium Level 7.8 L 8.7-10.4 mg/dL Magnesium Level 2.0 1.6-2.6 mg/dL Total Bilirubin 0.2 0.2-1.0 mg/dL Aspartate Amino Transferase (AST) 12 L 13-40 U/L Alanine Aminotransferase (ALT) < 9 7-40 U/L Alkaline Phosphatase 85 46-116 U/L Troponin I High Sensitivity 22 </=34 ng/L Total Protein 6.6 5.7-8.2 g/dL Albumin 3.6 3.2-4.8 g/dL Current Medications Medications (Trade) Dose Ordered Sig/Jai Route Start Time Stop Time Status Last Admin Sodium Chloride 1,000 ml @ 150 mls/hr Q6H40M ONCE IV 04/20/24 10:00 04/20/24 16:39 04/20/24 12:29 Piperacillin Sod/ Tazobactam Sod 100 ml @ 100 mls/hr ONCE ONCE IV 04/20/24 14:45 04/20/24 15:44 04/20/24 14:45 [place] [id number] Ph: [phone] DIAGNOSTIC IMAGING Diagnostic Imaging Report : [id number] Signed PATIENT: JOSE ALCALA MACCT: [id number] UNIT: [id number] : 1940 LOC: ER ROOM / BED: / AGE / SEX: 84 / F ADM STATUS: REG ER SERVICE [id number] ORDERING PHYSICIAN: SAMMY SOTO MD PROCEDURE(s): CXRP - CHEST PORTABLE REASON: weak ORDER NUMBER(s): [id number], ACCESSION NUMBER(s): [id number] CHEST RADIOGRAPH Indication: weak Technique: Single frontal view of the chest was obtained COMPARISON: XY CHEST PORTABLE on DOS: 03/27/24, XY CHEST PORTABLE on DOS: 03/24/24, XY CHEST PORTABLE on DOS: 12/21/23 FINDINGS: Lines and Tubes: Tunneled right central venous catheter in satisfactory position. Lungs: Mild congestion Pleura: Trace left pleural effusion. No pneumothorax. Cardiomediastinal contours: Cardiomegaly Bones: Unremarkable IMPRESSION: Mild congestion ATED BY: LUISITO FUENTES MD DICTATED DATE/TIME: 04/20/24 100 SIGNED BY: LUISITO FUENTES MD SIGNED DATE/TIME: 04/20/24 100 CC: X-Ray, Labs, Meds, VS Comment Course in the emergency department eventful patient came in complaining of generalized weakness and dizziness Blood pressure 151/63 patient came by ambulance The chest x-ray shows mild congestion EKG shows normal sinus rhythm at 87 with PVC right atrial enlargement and right ventricular hypertrophy Troponin 22 The CBC [id number] with H&H of 9.8 and 20.3 CMP GFR at six with a blood sugar of 218 Lactic acid 2. Urine pending D-dimer 12.5 very elevated Magnesium 2.0 Patient was sent for V/Q scan and she will be admitted for further care Dr. barney has been consulted and will admit the patient Time of 1ST Reevaluation: 09:40 Reevaluation 1ST: Unchanged Time of 2ND Reevaluation: 14:34 Reevaluation 2ND: Unchanged Patient Education/Counseling: Diagnosis, Treatment, Prognosis Family Education/Counseling: Diagnosis, Treatment, Prognosis, No Family Present Departure 1 Departure Time of Disposition: 14:36 Impression: Primary Impression: Generalized weakness Additional Impressions: Sepsis Qualified Codes: A41.9 - Sepsis, unspecified organism; R65.20 - Severe sepsis without septic shock; N17.9 - Acute kidney failure, unspecified Chronic kidney disease with end stage renal failure on dialysis Elevated d-dimer Anemia in chronic kidney disease Qualified Codes: N18.6 - End stage renal disease; D63.1 - Anemia in chronic kidney disease; Z99.2 - Dependence on renal dialysis Uncontrolled diabetes mellitus Qualified Codes: E11.65 - Type 2 diabetes mellitus with hyperglycemia Pulmonary vascular congestion Disposition: ADMITTED INPATIENT Admit to: WES Condition: Guarded Critical Care Note Critical Care Time?: Yes (30 min-critical care time only) Stability Stability form required: Yes Unstable for transfer: ICU, CCU, PCU, WES (Intensive VS monitoring), Requires medication (Requires Med for stabilization) Heart Score Heart Score: Heart Score Response (Comments) Value History Moderate Suspicious 1 EKG Repolarization Disturb 1 Age >65 2 Risk Factors >3 or Hx ASHD 2 Troponin Normal limit 0 Total 6 I personally scribed for SAMMY SOTO MD ([email or web address]) on 04/20/24 at 09:44. Electronically submitted by Karie Pedroza ([email or web address]). I personally scribed for SAMMY SOTO MD ([email or web address]) on 04/20/24 at 10:15. E lectronically submitted by Karie Pedroza ([email or web address]). SAMMY SOTO MD Apr 20, 2024 09:44
--- NOTE | 2024-04-20 10:12 | DVH ---
CHEST RADIOGRAPH Indication: weak Technique: Single frontal view of the chest was obtained COMPARISON: XY CHEST PORTABLE on DOS: 03/27/24, XY CHEST PORTABLE on DOS: 03/24/24, XY CHEST PORTABLE on DOS: 12/21/23 FINDINGS: Lines and Tubes: Tunneled right central venous catheter in satisfactory position. Lungs: Mild congestion Pleura: Trace left pleural effusion. No pneumothorax. Cardiomediastinal contours: Cardiomegaly Bones: Unremarkable IMPRESSION: Mild congestion
[2024-04-20 10:56] LABS: Albumin 3.6 g/dL (3.2-4.8); Alkaline Phosphatase 85 U/L (46-116); Anion Gap 11 (5-15); BUN/Creatinine Ratio 6.1 (10.0-20.0); Carbon Dioxide 22 mmol/L (20-31); Chloride 102 mmol/L (98-107)
[2024-04-20 10:57] LABS: Total Protein 6.6 g/dL (5.7-8.2)
[2024-04-20 11:05] LABS: Lactic Acid w/Reflex 2.2 mmol/L (0.4-2.0)
[2024-04-20 11:07] LABS: Alanine Aminotransferase < 9 U/L (7-40); Aspartate Aminotransferase 12 U/L (13-40); Bilirubin, Total 0.2 mg/dL (0.2-1.0); Blood Urea Nitrogen 42 mg/dL (9-23); Calcium 7.8 mg/dL (8.7-10.4); Glucose 218 mg/dL (74-106); Sodium 135 mmol/L (136-145)
[2024-04-20] MEDS: SODIUM CHLORIDE 0.9% 1,000 ML IV ONE (12:29)
[2024-04-20 13:58] LABS: Hematocrit 30.7 % (36.0-46.0); Hemoglobin 9.8 g/dL (12.2-16.2); Mean Corpuscular Hemoglobin 32.5 pg (28.0-32.0); Mean Corpuscular Volume 101.6 fL (80.0-100.0); Platelet Count (auto) 196 10^3/uL (140-450); Red Blood Cells 3.02 10^6/uL (4.0-5.20); White Blood Cell 25.8 10^3/uL (4.4-10.8)
[2024-04-20 14:06] LABS: Basophils % (manual) 0 (0.0-2.0); Blast Cells 0; Eosinophils % (manual) 0 (0-7); Metamyelocytes % 0; Myelocytes % 0; Promyelocytes % 0; Reactive Lymphocytes 0
[2024-04-20 14:38] LABS: Band Neutrophils % (manual) 17; Lymphocytes % (manual) 3 (10.0-50.0); Monocytes % (manual) 5 (0-12); Platelet Estimate Adequate
[2024-04-20] MEDS: PIPERACILLIN-TAZOB 3.375GM 100 ML IV ONE (14:45)
[2024-04-20 16:48] LABS: COVID19 ANTIGEN SOFIA FIA NEGATIVE (NEGATIVE)
[2024-04-20 16:49] LABS: Rapid Influenza A Negative (Negative); Rapid Influenza B Negative (Negative)
--- NOTE | 2024-04-20 16:55 | DVHINCON2 ---
Date of service: Apr 20, [address] Barney Reason for Consultation End-stage renal disease to manage hemodialysis History of Present Illness Patient is 84-year-old female with past medical history significant for Cancer, CHF, end-stage renal disease on hemodialysis, CVA, DM, High Lipids, HTN, and TIA is admitted for generalized weakness. On admission Nephrology is consulted for management of her hemodialysis Past Medical History PAST MEDICAL HISTORY: Cancer, CHF, CKF, CVA, DM, ESRD, High Lipids, HTN, TIA Past Surgical History Surgical History: Appendectomy, , Hysterectomy Allergies: Coded Allergies: NO KNOWN ALLERGIES (Unverified , 05/31/19) Home Meds Active Scripts Furosemide (Furosemide) 40 Mg Tab, 40 MG PO BIDD for 30 Days, #60 TAB 1 Refill Prov:SUNDAY BARNEY DO 12/23/23 Amlodipine Besylate (NORVASC TABLET) 5 Mg Tb, 10 MG PO DAILY for 30 Days, #60 TAB 1 Refill Prov:SUNDAY BARNEY DO 12/23/23 Carvedilol (COREG) 12.5 Mg Tab, 12.5 MG PO Q12HR for 30 Days, #60 TAB 1 Refill Prov:SUNDAY BARNEY DO 12/23/23 Lisinopril (Lisinopril) 5 Mg Tab, 5 MG PO DAILY for 30 Days, #30 TAB 1 Refill Prov:SUNDAY BARNEY DO 12/23/23 Atorvastatin Calcium (ATORVASTATIN CALCIUM) 20 Mg Tab, 40 MG PO HS for 30 Days, #60 TAB 1 Refill Prov:SUNDAY BARNEY DO 12/23/23 Reported Medications Insulin Lispro (Human) (Humalog) 100 Mg/Ml Inj, 30 MG SC HS, INJ 09/11/17 Insulin Glargine (Lantus) 100 Unit/Ml Inj, SC BS, INJ 09/11/17 Sitagliptin Phosphate (Januvia) 100 Mg Tab, 1 TAB PO DAILY, #30 TAB 5 Refills 09/11/17 Pregabalin (Lyrica) 100 Mg Cap, 1 CAP PO BID, #60 CAP 2 Refills 09/11/17 Aspirin (Aspir-Low) 81 Mg Tab, 81 MG PO DAILY for 30 Days, MG 09/11/17 Current Medications Current Medications Medications (Trade) Dose Ordered Sig/Jai Route PRN Reason Start Time Stop Time Status Last Admin Vancomycin HCl 0 ml @ 0 mls/hr UD IV 04/20/24 17:30 04/20/24 20:57 DC Acetaminophen (Tylenol Tablet) 325 mg Q4HP PRN PO MILD PAIN (1-3 PAIN SCALE) 04/20/24 17:45 Acetaminophen/ Hydrocodone Bitart ([place] 5/325MG Tab) 1 tab Q4HP PRN PO MODERATE PAIN (4-6 PAIN SCALE) 04/20/24 17:45 Temazepam (Restoril) 15 mg QHSP PRN PO FOR INSOMNIA 04/20/24 17:45 Ondansetron HCl (Zofran) 4 mg Q4HP PRN IV NAUSEA / VOMITING 04/20/24 17:45 Morphine Sulfate 2 mg Q4HPRN PRN IV SEVERE PAIN (7-10 PAIN SCALE) 04/20/24 17:45 Nitroglycerin (Ntrostat Sublingual) 0.4 mg Q5MINP PRN SL FOR CHEST PAIN 04/20/24 17:45 Morphine Sulfate 2 mg Q30M PRN IV FOR CHEST PAIN 04/20/24 17:45 Piperacillin Sod/ Tazobactam Sod 50 ml @ 50 mls/hr Q8HR IV 04/20/24 22:00 UNV Diagnostic Test (Pha) (Accu-Chek Comfort Curve T) 1 strip ACHS 04/20/24 22:00 04/21/24 11:30 Insulin Human Regular (InsuLIN R) ACHS SC 04/20/24 22:00 04/20/24 23:18 Dextrose 50 ml UD PRN IV Blood Sugar LESS THAN 60 04/20/24 18:15 Piperacillin Sod/ Tazobactam Sod 100 ml @ 25 mls/hr Q12HR IV 04/20/24 22:00 04/20/24 23:20 Vancomycin HCl 0 ml @ 0 mls/hr UD IV 04/20/24 21:00 Family History: Cardiovascular disease G8 FATHER, , Age: 73 Diabetes mellitus G8 FATHER, , Age: 73 FH: renal failure G8 MOTHER, , Age: 87 Ischemic heart disease G8 FATHER, , Age: 73 Review of Systems All 12 item review of systems reviewed with the patient nonsignificant except what is mentioned in the history of present illness H&P Exam Vital Signs/I&O Vital Sign Date Time Temp Pulse Resp B/P (MAP) Pulse Ox O2 Delivery O2 Flow Rate FiO2 04/21/24 12:42 97.3 55 16 180/58 (98) 100 97.3 04/21/24 08:00 Nasal Cannula* 3 32 Intake and Output 04/20/24 04/21/24 19:00 07:00 Intake Total 375 ml 500 ml Output Total 0 ml Balance 375 ml 500 ml Intake Oral 0 ml IV Total 375 ml 500 ml Output Urine Total 0 ml Physical Exam Patient is awake alert Lungs clear to auscultation bilaterally Cardiac exam regular rate and rhythm GI soft nontender was normal Extremity 1+ edema Neuro she is awake and alert Labs/Diagnostic Data Labs/Diagnostic Data Laboratory Tests Test 04/21/24 12:20 04/21/24 08:20 04/21/24 06:16 04/20/24 22:08 Range/Units POC Glucose 61 L 83 254 H 70-106 mg/dl White Blood Count 14.6 #H 4.4-10.8 10^3/uL Red Blood Count 3.01 L 4.0-5.20 10^6/uL Hemoglobin 9.8 L 12.2-16.2 g/dL Hematocrit 30.4 L 36.0-46.0 % Mean Corpuscular Volume 101.0 H 80.0-100.0 fL Mean Corpuscular Hemoglobin 32.7 H 28.0-32.0 pg Mean Corpuscular Hemoglobin Concent 32.4 32.0-36.0 g/dL Red Cell Distribution Width 15.0 H 11.8-14.3 % Platelet Count 168 140-450 10^3/uL Mean Platelet Volume 7.7 6.9-10.8 fL Neutrophils (%) (Auto) 86.4 H 37.0-80.0 % Lymphocytes (%) (Auto) 7.7 L 10.0-50.0 % Monocytes (%) (Auto) 5.3 0.0-12.0 % Eosinophils (%) (Auto) 0.4 0.0-7.0 % Basophils (%) (Auto) 0.2 0.0-2.0 % Neutrophils # (Auto) 12.6 H 1.6-8.6 10 ^3/uL Lymphocytes # (Auto) 1.1 0.4-5.4 10 ^3/uL Monocytes # (Auto) 0.8 0-1.3 10 ^3/uL Eosinophils # (Auto) 0.1 0-0.8 10 ^3/uL Basophils # (Auto) 0 0-0.2 10 ^3/uL Nucleated Red Blood Cells 0.0 % Sodium Level 137 136-145 mmol/L Potassium Level 4.2 3.5-5.1 mmol/L Chloride Level 105 98-107 mmol/L Carbon Dioxide Level 24 20-31 mmol/L Anion Gap 8 5-15 Blood Urea Nitrogen 55 #H 9-23 mg/dL Creatinine 7.75 H 0.550-1.02 mg/dL Glomerular Filtration Rate Calc 5 >90 mL/min BUN/Creatinine Ratio 7.1 L 10.0-20.0 Serum Glucose 74 74-106 mg/dL Calcium Level 7.6 L 8.7-10.4 mg/dL Total Bilirubin 0.2 0.2-1.0 mg/dL Aspartate Amino Transferase (AST) 13 13-40 U/L Alanine Aminotransferase (ALT) < 9 7-40 U/L Alkaline Phosphatase 72 46-116 U/L Total Protein 6.3 5.7-8.2 g/dL Albumin 3.5 3.2-4.8 g/dL Random Vancomycin Level 14.3 H 5-10 ug/mL Test 04/20/24 15:58 04/20/24 13:45 04/20/24 10:19 Range/Units Influenza Type A Antigen Negative Negative Influenza Type B Antigen Negative Negative SARS-CoV-2 Antigen (Rapid) Negative NEGATIVE White Blood Count 25.8 H 4.4-10.8 10^3/uL Red Blood Count 3.02 L 4.0-5.20 10^6/uL Hemoglobin 9.8 L 12.2-16.2 g/dL Hematocrit 30.7 L 36.0-46.0 % Mean Corpuscular Volume 101.6 H 80.0-100.0 fL Mean Corpuscular Hemoglobin 32.5 H 28.0-32.0 pg Mean Corpuscular Hemoglobin Concent 32.0 32.0-36.0 g/dL Red Cell Distribution Width 15.0 H 11.8-14.3 % Platelet Count 196 140-450 10^3/uL Mean Platelet Volume 7.9 6.9-10.8 fL Neutrophils (%) (Auto) 37.0-80.0 % Lymphocytes (%) (Auto) 10.0-50.0 % Monocytes (%) (Auto) 0.0-12.0 % Basophils (%) (Auto) 0.0-2.0 % Neutrophils # (Auto) 1.6-8.6 10 ^3/uL Lymphocytes # (Auto) 0.4-5.4 10 ^3/uL Monocytes # (Auto) 0-1.3 10 ^3/uL Differential Total Cells Counted 100.0 100 Neutrophils % (Manual) 75 37.0-80.0 Band Neutrophils % (Manual) 17 Lymphocytes % (Manual) 3 L 10.0-50.0 Monocytes % (Manual) 5 0-12 Eosinophils % (Manual) 0 0-7 Basophils % (Manual) 0 0.0-2.0 Metamyelocytes % (manual) 0 Myelocytes % (Manual) 0 Promyelocytes % (Manual) 0 Blast Cells % (Manual) 0 Reactive Lymphocytes 0 Platelet Estimate Adequate Lactic Acid Level 1.6 2.2 *H 0.4-2.0 mmol/L D-Dimer, Quantitative 12.51 H 0.0-0.49 mg/L FEU Sodium Level 135 L 136-145 mmol/L Potassium Level 4.0 3.5-5.1 mmol/L Chloride Level 102 98-107 mmol/L Carbon Dioxide Level 22 20-31 mmol/L Anion Gap 11 5-15 Blood Urea Nitrogen 42 H 9-23 mg/dL Creatinine 6.87 H 0.550-1.02 mg/dL Glomerular Filtration Rate Calc 6 >90 mL/min BUN/Creatinine Ratio 6.1 L 10.0-20.0 Serum Glucose 218 H 74-106 mg/dL Calcium Level 7.8 L 8.7-10.4 mg/dL Phosphorus Level 3.9 2.4-5.1 mg/dL Magnesium Level 2.0 1.6-2.6 mg/dL Total Bilirubin 0.2 0.2-1.0 mg/dL Aspartate Amino Transferase (AST) 12 L 13-40 U/L Alanine Aminotransferase (ALT) < 9 7-40 U/L Alkaline Phosphatase 85 46-116 U/L Troponin I High Sensitivity 22 </=34 ng/L B-Type Natriuretic Peptide 857.90 0-100 pg/mL Total Protein 6.6 5.7-8.2 g/dL Albumin 3.6 3.2-4.8 g/dL Assessment End-stage renal disease on hemodialysis Chronic diastolic heart failure Diabetes mellitus type 2 Hypertension Generalized weakness Sepsis Anemia of chronic kidney disease Recommendations Hemodialysis tomorrow Epogen 77965 IV post hemodialysis Blood and urine Cultures IV antibiotics Resume home medications Renal diet We will continue supportive care Patient seen and examined by myself. I discussed my plan of care with the patient and the primary nurse at the bedside I would like to thank for the consult, will follow up Plan discussed with: Patient CARLOS HYAES MD Apr 20, 2024 16:55
[2024-04-20] MEDS ORDERED: VANCOMYCIN PER PHARMACY 0 MG IV SCH ×2 (17:30→21:00)
[2024-04-20] MEDS ORDERED: HYDROcodone-ACET 5/325MG TAB PO PRN (17:45)
[2024-04-20] MEDS ORDERED: NITROGLYCERIN 0.4 MG SL TAB SL PRN (17:45)
[2024-04-20] MEDS ORDERED: ONDANSETRON HCL 4 MG/2 ML VIAL IV PRN (17:45)
[2024-04-20] MEDS ORDERED: ACETAMINOPHEN 325 MG TAB PO PRN (17:45)
[2024-04-20] MEDS ORDERED: MORPHINE SULFATE INJ 2 MG/ml SYRG IV PRN ×2 (17:45)
[2024-04-20] MEDS ORDERED: TEMAZEPAM 15 MG CAP PO PRN (17:45)
--- NOTE | 2024-04-20 17:58 | DVHHP2 ---
Admitting Diagnosis: Generalized Weakness History of Present Illness HPI Patient is a 84-year-old female with past medical history of CHF, type 2 diabetes, ESRD on HD who presented with generalized weakness and feeling unwell. Patient states she was at home with her son when he noticed that she looked pale and unwell. He subsequently contacted EMS. Patient missed her dialysis session today. At baseline she is able to ambulate with a walker but currently is barely able to move out of her hospital bed. Patient endorses fever and chills but denies any shortness of breath, nausea, vomiting, diarrhea. In the ER, patient's vitals were notable for temperature 100.3, leukocytosis of 25, elevated lactic acid. Her lactic acidosis subsequently resolved with some fluid. Patient was given IV Zosyn in the ER. Flu and COVID were negative. Patient was admitted for further evaluation of her sepsis. Home Meds Active Scripts Clonidine Hydrochloride (Clonidine Hcl) 0.2 Mg Tab, 0.2 MG PO BID PRN for 20 Days, #60 TAB 3 Refills Prov:ADRIANA CLOBERT MD 03/27/24 Furosemide (Furosemide) 40 Mg Tab, 40 MG PO BIDD for 30 Days, #60 TAB 1 Refill Prov:SUNDAY BARNEY DO 12/23/23 Amlodipine Besylate (NORVASC TABLET) 5 Mg Tb, 10 MG PO DAILY for 30 Days, #60 TAB 1 Refill Prov:SUNDAY BARNEY DO 12/23/23 Carvedilol (COREG) 12.5 Mg Tab, 12.5 MG PO Q12HR for 30 Days, #60 TAB 1 Refill Prov:SUNDAY BARNEY DO 12/23/23 Lisinopril (Lisinopril) 5 Mg Tab, 5 MG PO DAILY for 30 Days, #30 TAB 1 Refill Prov:SUNDAY BARNEY DO 12/23/23 Atorvastatin Calcium (ATORVASTATIN CALCIUM) 20 Mg Tab, 40 MG PO HS for 30 Days, #60 TAB 1 Refill Prov:SUNDAY BARNEY DO 12/23/23 Reported Medications Insulin Lispro (Human) (Humalog) 100 Mg/Ml Inj, 30 MG SC HS, INJ 09/11/17 Insulin Glargine (Lantus) 100 Unit/Ml Inj, SC BS, INJ 09/11/17 Sitagliptin Phosphate (Januvia) 100 Mg Tab, 1 TAB PO DAILY, #30 TAB 5 Refills 09/11/17 Pregabalin (Lyrica) 100 Mg Cap, 1 CAP PO BID, #60 CAP 2 Refills 09/11/17 Aspirin (Aspir-Low) 81 Mg Tab, 81 MG PO DAILY for 30 Days, MG 09/11/17 Past Medical History Cardiac: CHF, HTN Renal/: ESRD HD/PD Patient Family History: Cardiovascular disease G8 FATHER, , Age: 73 Diabetes mellitus G8 FATHER, , Age: 73 FH: renal failure G8 MOTHER, , Age: 87 Ischemic heart disease G8 FATHER, , Age: 73 Review of Systems Constitutional: Chills, Fever Pulmonary/Respiratory: No symptom reported Cardiovascular: No symptom reported Genitourinary: No symptom reported H&P Exam Vital Signs Vital Signs Date Time Temp Pulse Resp B/P (MAP) Pulse Ox O2 Delivery O2 Flow Rate FiO2 04/20/24 16:00 67 04/20/24 14:00 22 120/37 (64) 99 04/20/24 09:00 Room Air* 0 21 04/20/24 07:59 100.3 General Appeara: Other (Tired Appearing) Pulmonary/Respiratory: Normal inspection, Normal breath sounds Abdominal Exam: Normal bowel sounds, No tenderness Labs/Xrays Labs Test 04/20/24 15:58 04/20/24 13:45 04/20/24 10:19 Range/Units Influenza Type A Antigen Negative Negative Influenza Type B Antigen Negative Negative SARS-CoV-2 Antigen (Rapid) Negative NEGATIVE White Blood Count 25.8 H 4.4-10.8 10^3/uL Red Blood Count 3.02 L 4.0-5.20 10^6/uL Hemoglobin 9.8 L 12.2-16.2 g/dL Hematocrit 30.7 L 36.0-46.0 % Mean Corpuscular Volume 101.6 H 80.0-100.0 fL Mean Corpuscular Hemoglobin 32.5 H 28.0-32.0 pg Mean Corpuscular Hemoglobin Concent 32.0 32.0-36.0 g/dL Red Cell Distribution Width 15.0 H 11.8-14.3 % Platelet Count 196 140-450 10^3/uL Mean Platelet Volume 7.9 6.9-10.8 fL Neutrophils (%) (Auto) 37.0-80.0 % Lymphocytes (%) (Auto) 10.0-50.0 % Monocytes (%) (Auto) 0.0-12.0 % Basophils (%) (Auto) 0.0-2.0 % Neutrophils # (Auto) 1.6-8.6 10 ^3/uL Lymphocytes # (Auto) 0.4-5.4 10 ^3/uL Monocytes # (Auto) 0-1.3 10 ^3/uL Differential Total Cells Counted 100.0 100 Neutrophils % (Manual) 75 37.0-80.0 Band Neutrophils % (Manual) 17 Lymphocytes % (Manual) 3 L 10.0-50.0 Monocytes % (Manual) 5 0-12 Eosinophils % (Manual) 0 0-7 Basophils % (Manual) 0 0.0-2.0 Metamyelocytes % (manual) 0 Myelocytes % (Manual) 0 Promyelocytes % (Manual) 0 Blast Cells % (Manual) 0 Reactive Lymphocytes 0 Platelet Estimate Adequate Lactic Acid Level 1.6 0.4-2.0 mmol/L D-Dimer, Quantitative 12.51 H 0.0-0.49 mg/L FEU Sodium Level 135 L 136-145 mmol/L Potassium Level 4.0 3.5-5.1 mmol/L Chloride Level 102 98-107 mmol/L Carbon Dioxide Level 22 20-31 mmol/L Anion Gap 11 5-15 Blood Urea Nitrogen 42 H 9-23 mg/dL Creatinine 6.87 H 0.550-1.02 mg/dL Glomerular Filtration Rate Calc 6 >90 mL/min BUN/Creatinine Ratio 6.1 L 10.0-20.0 Serum Glucose 218 H 74-106 mg/dL Calcium Level 7.8 L 8.7-10.4 mg/dL Magnesium Level 2.0 1.6-2.6 mg/dL Total Bilirubin 0.2 0.2-1.0 mg/dL Aspartate Amino Transferase (AST) 12 L 13-40 U/L Alanine Aminotransferase (ALT) < 9 7-40 U/L Alkaline Phosphatase 85 46-116 U/L Troponin I High Sensitivity 22 </=34 ng/L Total Protein 6.6 5.7-8.2 g/dL Albumin 3.6 3.2-4.8 g/dL Assessment/Plan Primary Diagnosis 1. Generalized weakness with Sepsis 2' Diagnosis/Co-morbidities 2. ESRD on HD 3. Type 2 DM 4. History of CHF Plan -Admit to telemetry -Vancomycin and Zosyn per pharmacy to dose -Blood cultures ordered. Blood cultures were not taken prior to initial Zosyn dose given in the ER. -Infectious disease consulted, Dr. Conde -CT chest/abdomen/pelvis ordered with contrast to be done on 04/21 prior to dialysis -Monitor for recurrent fevers. Source may be HD line infection -Nephrology consulted for dialysis. Patient gets dialysis Thursday/Thursday/Thursday. Plan for HD on 04/21 -COVID/Influenza Negative -Insulin sliding scale -Pain medications listed per JUL -Avoid additional IVF due to possible fluid overload in the setting of missed HD -Full Code Plan discussed with: Patient ECTORSUNDAY Qureshi DO Apr 20, 2024 17:57
[2024-04-20] MEDS ORDERED: DEXTROSE (50%) 50ML SYRG IV PRN (18:15)
[2024-04-20] MEDS ORDERED: VANCOMYCIN 1GM/250ML KIT 250 ML IV ONE (18:15)
[2024-04-20] MEDS: VANCOMYCIN 1GM/250ML KIT 250 ML IV ONE (21:44)
[2024-04-20] MEDS ORDERED: PIPERACILLIN-TAZOB 2.25GM 50 ML IV SCH (22:00)
[2024-04-20] MEDS: InsuLIN REG 1unit/0.01ml Soln (100units/ml) SC SCH (23:18)
[2024-04-20] MEDS: ACCU-CHEK COMFORT CURVE STRIP VI SCH (23:20)
[2024-04-20] MEDS: PIPERACILLIN-TAZOB 3.375GM 100 ML IV SCH (23:20)
[2024-04-21] VITALS (7 sets, daily range): BP systolic 143–180; BP diastolic 43–58; PULSE 55–72; RESP 16–20; TEMP 97.3–98.8; O2SAT 95–100
[2024-04-21] MEDS: IOHEXOL 300 MG/ML 100ML BOTTLE IJ ONE (03:34)
[2024-04-21] MEDS ORDERED: SODIUM CHL 0.9% 1000 ML BAG XX ONE (07:00)
--- NOTE | 2024-04-21 07:19 | DVHPN2 ---
Progress Note Date Seen: Apr 21, 2024 Medical Necessity Reason Pt with a Central, PICC or Fol: No Subjective Patient reports: No new complaints Review of Systems: HEENT:Normal, CVS:Normal, RESPIRATORY:Normal, GI:Normal Objective vital signs Vital Sign Date Time Temp Pulse Resp B/P (MAP) Pulse Ox O2 Delivery O2 Flow Rate FiO2 04/21/24 05:00 97.6 63 20 143/50 (81) 100 97.6 04/21/24 05:00 Nasal Cannula* 3 32 Total Intake and Output 04/20/24 04/20/24 04/21/24 15:00 23:00 07:00 Intake Total 375 ml 400 ml 100 ml Output Total 0 ml Balance 375 ml 400 ml 100 ml medications Current Medications Medications Dose Ordered Sig/Jai Route Start Time Stop Time Status Last Admin Dose Admin Acetaminophen 325 mg Q4HP PRN PO 04/20/24 17:45 Acetaminophen/ Hydrocodone Bitart 1 tab Q4HP PRN PO 04/20/24 17:45 Temazepam 15 mg QHSP PRN PO 04/20/24 17:45 Ondansetron HCl 4 mg Q4HP PRN IV 04/20/24 17:45 Morphine Sulfate 2 mg Q4HPRN PRN IV 04/20/24 17:45 Nitroglycerin 0.4 mg Q5MINP PRN SL 04/20/24 17:45 Morphine Sulfate 2 mg Q30M PRN IV 04/20/24 17:45 Piperacillin Sod/ Tazobactam Sod 50 ml @ 50 mls/hr Q8HR IV 04/20/24 22:00 UNV Diagnostic Test (Pha) 1 strip ACHS 04/20/24 22:00 04/21/24 06:19 1 STRIP Insulin Human Regular ACHS SC 04/20/24 22:00 04/20/24 23:18 6 UNITS Dextrose 50 ml UD PRN IV 04/20/24 18:15 Piperacillin Sod/ Tazobactam Sod 100 ml @ 25 mls/hr Q12HR IV 04/20/24 22:00 04/20/24 23:20 25 MLS/HR Vancomycin HCl 0 ml @ 0 mls/hr UD IV 04/20/24 21:00 Examination: GENERAL:Normal, LUNGS:Normal, CVS:Normal laboratory and microbiology Laboratory Tests 04/20/24 13:45 04/20/24 10:19 Test 04/20/24 10:19 Range/Units Serum Glucose 218 H 74-106 mg/dL Problem List/Assessment/Plan Problem List/Assessment/Plan 1) Sepsis 2) ESRD on HD 3) Hx of CVA 4) HTN 5) HLD 6) DM 7) Hx of cancer plan; HD to be done today as per renal, IV ABx broad spectrum, ID consult, CT chest/abd/pelvis pending, nephro/ID on board. BCx pending, supportive care, will follow along Plan discussed with: Other (n) COLE PALMER MD Apr 21, 2024 07:19
--- NOTE | 2024-04-21 07:51 | ECG ---
[facility] Test Date: 2024-04-20 Test Time: 08:09:03 Pat Name: OJSE ALCALA Department: ER Room: [facility] A Gender: F Quality Compliance Consultant: YARITZA : 1940 Requested By: SAMMY SOTO Order Number: [id number] Reading MD: Samir Burk Measurements Intervals [place] Rate: 87 P: 79 DC: 46 QRS: 109 QRSD: 100 T: 84 QT: 397 QTc: 478 Interpretive Statements Sinus rhythm Ventricular premature complex Short DC interval Right atrial enlargement Consider right ventricular hypertrophy Repol abnrm suggests ischemia, lateral leads Minimal ST elevation, inferior leads Artifact in lead(s) I,III,aVR,aVL,aVF Electronically Signed On 04-22-2024 10:25:15 PST by Samir Burk Please click the below link to view image of tracing.
[2024-04-21 08:32] LABS: Basophils # (auto) 0 10 ^3/uL (0-0.2); Basophils % (auto) 0.2 % (0.0-2.0); Eosinophils # (auto) 0.1 10 ^3/uL (0-0.8); Eosinophils % (auto) 0.4 % (0.0-7.0); Hematocrit 30.4 % (36.0-46.0); Hemoglobin 9.8 g/dL (12.2-16.2); Lymphocytes # (auto) 1.1 10 ^3/uL (0.4-5.4); Lymphocytes % (auto) 7.7 % (10.0-50.0); Mean Corpuscular Hemoglobin 32.7 pg (28.0-32.0); Mean Corpuscular Hgb Conc. 32.4 g/dL (32.0-36.0); Monocytes # (auto) 0.8 10 ^3/uL (0-1.3); Monocytes % (auto) 5.3 % (0.0-12.0); Neutrophils # (auto) 12.6 10 ^3/uL (1.6-8.6); Neutrophils % (auto) 86.4 % (37.0-80.0); Platelet Count (auto) 168 10^3/uL (140-450); Red Blood Cells 3.01 10^6/uL (4.0-5.20); White Blood Cell 14.6 10^3/uL (4.4-10.8)
[2024-04-21 08:50] LABS: Albumin 3.5 g/dL (3.2-4.8); Alkaline Phosphatase 72 U/L (46-116); Anion Gap 8 (5-15); Aspartate Aminotransferase 13 U/L (13-40); BUN/Creatinine Ratio 7.1 (10.0-20.0); Carbon Dioxide 24 mmol/L (20-31); Chloride 105 mmol/L (98-107); Potassium 4.2 mmol/L (3.5-5.1); Sodium 137 mmol/L (136-145)
[2024-04-21 08:51] LABS: Total Protein 6.3 g/dL (5.7-8.2)
[2024-04-21 09:15] LABS: Alanine Aminotransferase < 9 U/L (7-40); Bilirubin, Total 0.2 mg/dL (0.2-1.0); Blood Urea Nitrogen 55 mg/dL (9-23); Calcium 7.6 mg/dL (8.7-10.4); Glucose 74 mg/dL (74-106)
--- NOTE | 2024-04-21 14:29 | DVH ---
Procedure: CT CHST AB PEL WO CON-NO IV/ORAL 04/21/2024 01:49 PM Indication: SEPSIS UNSPECIFIED ETIOLOGY Comparison Study: None available at time of dictation. Technique: Axial images were obtained and reformatted in coronal and sagittal planes. All CT scans at this medical facility are performed using dose modulation techniques as appropriate t o a performed exam including the following: Automated exposure control was utilized; adjustment of th e MA and/or KV according to patient size; and use of iterative reconstruction technique. CT Dose: CTDI volume is 16.3 mGy. Dose-length product is 1077 mGy*cm FINDINGS: Lower neck: Multinodular goiter. Cardiomediastinal: The heart is normal in size. Heavy coronary artery calcification / stenting noted. Calcification of the mitral annulus and aortic valve. Right IJ line with the tip at the cavoatrial j unction. Aorta is normal in caliber with scattered calcified plaques . No mediastinal lymphadenopat hy. Lungs: No focal pulmonary opacity. No pleural effusion. No pneumothorax. Hepatobiliary: Multiple hepatic cysts are seen measuring up to 1.3 cm. A subcentimeter calcified gran uloma is seen in the left lobe. Moderately distended gallbladder containing numerous subcentimeter ca lcified gallstones Spleen: Unremarkable. Pancreas: Unremarkable. Adrenal Glands: Unremarkable. tract: The kidneys are normal in size bilaterally without hydronephrosis . A subcentimeter right r enal stone noted. Bilateral renal vascular calcification. Few subcentimeter cysts in bilateral kidne ys that are not well evaluated in this unenhanced study. The urinary bladder is unremarkable. GI tract: The stomach is grossly normal in appearance. No evidence of small bowel obstruction. Few s igmoid diverticula are seen without diverticulitis. No bowel wall thickening. Liquid stool noted in the lumen of sigmoid colon and rectum. The appendix is normal. Lymphatics: No mesenteric, retroperitoneal or periportal lymphadenopathy. Vasculature: The abdominal aorta is normal in in caliber. Pelvic Organs: Unremarkable . Bones/soft tissues: No acute abnormality. Moderate bilateral hip joint osteoarthritis. Right lateral abdominal wall intramuscular lipoma measuring approximately 5.9 x 1.6 cm. Other: None. IMPRESSION: 1. Diarrheal state with no evidence of colitis. Gastroenteritis can not be ruled out. Correlate cli nically. 2. No acute abnormality seen in the chest. 3. Cholelithiasis with no evidence for cholecystitis. 4. Scattered colonic diverticula without diverticulitis. 5. Several benign-appearing hepatic cysts measuring up to 3.2 cm. 6. Subcentimeter nonobstructing right renal stone.
--- NOTE | 2024-04-21 16:33 | DVHPN2 ---
Progress Note Date Seen: Apr 21, 2024 Medical Necessity Reason Pt with a Central, PICC or Fol: No Subjective Patient reports: No new complaints Other Systems: Patient seen and examined by myself today in follow-up Patient examined hemodialysis, blood pressure stable Objective vital signs Vital Sign Date Time Temp Pulse Resp B/P (MAP) Pulse Ox O2 Delivery O2 Flow Rate FiO2 04/21/24 12:42 97.3 55 16 180/58 (98) 100 97.3 04/21/24 08:00 Nasal Cannula* 3 32 Total Intake and Output 04/20/24 04/20/24 04/21/24 15:00 23:00 07:00 Intake Total 375 ml 400 ml 100 ml Output Total 0 ml Balance 375 ml 400 ml 100 ml medications Current Medications Medications Dose Ordered Sig/Jai Route Start Time Stop Time Status Last Admin Dose Admin Acetaminophen 325 mg Q4HP PRN PO 04/20/24 17:45 Acetaminophen/ Hydrocodone Bitart 1 tab Q4HP PRN PO 04/20/24 17:45 Temazepam 15 mg QHSP PRN PO 04/20/24 17:45 Ondansetron HCl 4 mg Q4HP PRN IV 04/20/24 17:45 Morphine Sulfate 2 mg Q4HPRN PRN IV 04/20/24 17:45 Nitroglycerin 0.4 mg Q5MINP PRN SL 04/20/24 17:45 Morphine Sulfate 2 mg Q30M PRN IV 04/20/24 17:45 Piperacillin Sod/ Tazobactam Sod 50 ml @ 50 mls/hr Q8HR IV 04/20/24 22:00 UNV Diagnostic Test (Pha) 1 strip ACHS 04/20/24 22:00 04/21/24 11:30 Insulin Human Regular ACHS SC 04/20/24 22:00 04/20/24 23:18 Dextrose 50 ml UD PRN IV 04/20/24 18:15 Piperacillin Sod/ Tazobactam Sod 100 ml @ 25 mls/hr Q12HR IV 04/20/24 22:00 04/20/24 23:20 Vancomycin HCl 0 ml @ 0 mls/hr UD IV 04/20/24 21:00 Examination: LUNGS:Normal, CVS:Normal, MSK:Normal laboratory and microbiology Laboratory Tests 04/21/24 08:20 Test 04/21/24 08:20 Range/Units Serum Glucose 74 74-106 mg/dL Problem List/Assessment/Plan Problem List/Assessment/Plan End-stage renal disease on hemodialysis Chronic diastolic heart failure Diabetes mellitus type 2 Hypertension Generalized weakness Sepsis Anemia of chronic kidney disease Recommendations Continue with UF to 3 L as tolerated Epogen 85730 IV post hemodialysis Blood culture is pending IV antibiotics Resume home medications Renal diet We will continue supportive care Plan discussed with: Patient My Orders My Orders Orders - CARLOS HAYES MD Procedure Category Date Status Time Hemodialysis Orders ORDERS 04/21/24 Transmitted 07:00 Dialysis Nursing LAZ 04/21/24 In Process Message 07:00 Document Fluid Input LAZ 04/21/24 In Process And Outpu 07:00 Epoetin Leon-Epbx PHA 04/21/24 In Process (Retacrit) 21:00 CARLOS HAYES MD Apr 21, 2024 16:33
[2024-04-21] MEDS: VANCOMYCIN 500mg/100mL 100 ML IV ONE (18:02)
--- NOTE | 2024-04-21 20:39 | DVHINCON2 ---
Date of service: Apr 20, 2024 Family History: Cardiovascular disease G8 FATHER, , Age: 73 Diabetes mellitus G8 FATHER, , Age: 73 FH: renal failure G8 MOTHER, , Age: 87 Ischemic heart disease G8 FATHER, , Age: 73 Allergies: Coded Allergies: NO KNOWN ALLERGIES (Unverified , 05/31/19) Home Meds Active Scripts Furosemide (Furosemide) 40 Mg Tab, 40 MG PO BIDD for 30 Days, #60 TAB 1 Refill Prov:SUNDAY BARNEY DO 12/23/23 Amlodipine Besylate (NORVASC TABLET) 5 Mg Tb, 10 MG PO DAILY for 30 Days, #60 TAB 1 Refill Prov:SUNDAY BARNEY DO 12/23/23 Carvedilol (COREG) 12.5 Mg Tab, 12.5 MG PO Q12HR for 30 Days, #60 TAB 1 Refill Prov:SUNDAY BARNEY DO 12/23/23 Lisinopril (Lisinopril) 5 Mg Tab, 5 MG PO DAILY for 30 Days, #30 TAB 1 Refill Prov:SUNDAY BARNEY DO 12/23/23 Atorvastatin Calcium (ATORVASTATIN CALCIUM) 20 Mg Tab, 40 MG PO HS for 30 Days, #60 TAB 1 Refill Prov:SUNDAY BARNEY DO 12/23/23 Reported Medications Insulin Lispro (Human) (Humalog) 100 Mg/Ml Inj, 30 MG SC HS, INJ 09/11/17 Insulin Glargine (Lantus) 100 Unit/Ml Inj, SC BS, INJ 09/11/17 Sitagliptin Phosphate (Januvia) 100 Mg Tab, 1 TAB PO DAILY, #30 TAB 5 Refills 09/11/17 Pregabalin (Lyrica) 100 Mg Cap, 1 CAP PO BID, #60 CAP 2 Refills 09/11/17 Aspirin (Aspir-Low) 81 Mg Tab, 81 MG PO DAILY for 30 Days, MG 09/11/17 Current Medications Current Medications Medications (Trade) Dose Ordered Sig/Jai Route PRN Reason Start Time Stop Time Status Last Admin Piperacillin Sod/ Tazobactam Sod 50 ml @ 50 mls/hr Q8HR IV 04/20/24 22:00 UNV Diagnostic Test (Pha) (Accu-Chek Comfort Curve T) 1 strip ACHS 04/20/24 22:00 12/19/24 18:24 Insulin Human Regular (InsuLIN R) ACHS SC 04/20/24 22:00 04/21/24 18:26 Piperacillin Sod/ Tazobactam Sod 100 ml @ 25 mls/hr Q12HR IV 04/20/24 22:00 04/20/24 23:20 Vancomycin HCl 0 ml @ 0 mls/hr UD IV 04/20/24 21:00 Vital Signs Vital Signs Date Time Temp Pulse Resp B/P (MAP) Pulse Ox O2 Delivery O2 Flow Rate FiO2 04/21/24 17:22 98.0 68 16 163/46 (85) 100 98.0 04/21/24 08:00 Nasal Cannula* 3 32 Labs/Diagnostic Data Labs Test 04/21/24 18:13 04/21/24 08:20 04/20/24 15:58 04/20/24 13:45 Range/Units POC Glucose 167 H 70-106 mg/dl White Blood Count 14.6 #H 4.4-10.8 10^3/uL Red Blood Count 3.01 L 4.0-5.20 10^6/uL Hemoglobin 9.8 L 12.2-16.2 g/dL Hematocrit 30.4 L 36.0-46.0 % Mean Corpuscular Volume 101.0 H 80.0-100.0 fL Mean Corpuscular Hemoglobin 32.7 H 28.0-32.0 pg Mean Corpuscular Hemoglobin Concent 32.4 32.0-36.0 g/dL Red Cell Distribution Width 15.0 H 11.8-14.3 % Platelet Count 168 140-450 10^3/uL Mean Platelet Volume 7.7 6.9-10.8 fL Neutrophils (%) (Auto) 86.4 H 37.0-80.0 % Lymphocytes (%) (Auto) 7.7 L 10.0-50.0 % Monocytes (%) (Auto) 5.3 0.0-12.0 % Eosinophils (%) (Auto) 0.4 0.0-7.0 % Basophils (%) (Auto) 0.2 0.0-2.0 % Neutrophils # (Auto) 12.6 H 1.6-8.6 10 ^3/uL Lymphocytes # (Auto) 1.1 0.4-5.4 10 ^3/uL Monocytes # (Auto) 0.8 0-1.3 10 ^3/uL Eosinophils # (Auto) 0.1 0-0.8 10 ^3/uL Basophils # (Auto) 0 0-0.2 10 ^3/uL Nucleated Red Blood Cells 0.0 % Sodium Level 137 136-145 mmol/L Potassium Level 4.2 3.5-5.1 mmol/L Chloride Level 105 98-107 mmol/L Carbon Dioxide Level 24 20-31 mmol/L Anion Gap 8 5-15 Blood Urea Nitrogen 55 #H 9-23 mg/dL Creatinine 7.75 H 0.550-1.02 mg/dL Glomerular Filtration Rate Calc 5 >90 mL/min BUN/Creatinine Ratio 7.1 L 10.0-20.0 Serum Glucose 74 74-106 mg/dL Calcium Level 7.6 L 8.7-10.4 mg/dL Total Bilirubin 0.2 0.2-1.0 mg/dL Aspartate Amino Transferase (AST) 13 13-40 U/L Alanine Aminotransferase (ALT) < 9 7-40 U/L Alkaline Phosphatase 72 46-116 U/L Total Protein 6.3 5.7-8.2 g/dL Albumin 3.5 3.2-4.8 g/dL Random Vancomycin Level 14.3 H 5-10 ug/mL Influenza Type A Antigen Negative Negative Influenza Type B Antigen Negative Negative SARS-CoV-2 Antigen (Rapid) Negative NEGATIVE Differential Total Cells Counted 100.0 100 Neutrophils % (Manual) 75 37.0-80.0 Band Neutrophils % (Manual) 17 Lymphocytes % (Manual) 3 L 10.0-50.0 Monocytes % (Manual) 5 0-12 Eosinophils % (Manual) 0 0-7 Basophils % (Manual) 0 0.0-2.0 Metamyelocytes % (manual) 0 Myelocytes % (Manual) 0 Promyelocytes % (Manual) 0 Blast Cells % (Manual) 0 Reactive Lymphocytes 0 Platelet Estimate Adequate Lactic Acid Level 1.6 0.4-2.0 mmol/L Test 04/20/24 10:19 Range/Units D-Dimer, Quantitative 12.51 H 0.0-0.49 mg/L FEU Phosphorus Level 3.9 2.4-5.1 mg/dL Magnesium Level 2.0 1.6-2.6 mg/dL Troponin I High Sensitivity 22 </=34 ng/L B-Type Natriuretic Peptide 857.90 0-100 pg/mL Problems(with codes): (1) HTN (hypertension) (2) CHF (congestive heart failure) (3) Fatigue (4) Fluid overload (5) Uncontrolled diabetes mellitus (6) Sepsis (7) Chronic kidney disease with end stage renal failure on dialysis Plan/Recommendation ASSESSMENT AND PLAN: ID Problem List: - End-stage renal disease (ESRD) on hemodialysis - Sepsis - Generalized weakness - Leukocytosis - Diarrheal illness - Anemia - Lactic acidosis - Congestive heart failure (CHF) - Hypertension - Type 2 diabetes mellitus Assessment This is an 84 y.o. female, has a past medical history of CHF, hypertension, type 2 diabetes mellitus, and ESRD on hemodialysis, who presents with generalized weakness and feeling unwell. She was noted by her son to be looking pale and was brought into her dialysis session today and subsequently brought in by EMS. She is able to ambulate by walker at baseline but now is barely able to get out of bed. She notes generalized weakness and endorses fevers and chills. On admission: Temperature of 100.3F, leukocytosis with WBC count of 25.8, and elevated lactic acid. She received fluids, and lactic acid levels improved. Started on vancomycin and Zosyn. Influenza A/B and COVID were negative. Tunneled catheter on right chest appears clean, dry, and intact. VQ scan with low probability of PE. Chest X-ray shows mild congestion. CT chest/abdomen/pelvis with: 1. No acute abnormality seen in the chest. 2. Cholelithiasis without evidence of cholecystitis. 3. Scattered colonic diverticula without diverticulitis. 4. Several benign-appearing hepatic cysts measuring 3.2 cm. 5. Subcentimeter non-obstructing right renal stone. Plan: - Now that blood pressures are improved and stable, recommend discontinuation of Zosyn. - Continue vancomycin. - Change to ceftriaxone for acute diarrheal illness. - Follow up on blood cultures. - If blood cultures remain negative and patient tolerates dialysis and sepsis picture continues to improve, recommend that patient go home on two weeks of vancomycin with dialysis, in the setting that blood cultures were drawn after antibiotics were administered. - Also recommend that surveillance blood cultures be drawn. - Follow up with Infectious Disease in three weeks for surveillance blood cultures. Isolation Precautions: standard Assessment and plan were discussed with the patient as written above. Plan is subject to change pending incorporation of new incoming information/diagnostics. Updates may be added as addendum at the bottom (OR TOP) of this note. Thank you for the interesting consult. ID will continue to follow. Please con tact Infectious Disease for any questions or concerns. Stu Conde M.D. [facility] Ph: ? History: The patient's chart and medications were reviewed in detail, and the patient was seen and examined. History obtained from: patient Miss Elina Tsang is an 84 y.o. female with a past medical history of CHF, hypertension, type 2 diabetes mellitus, and ESRD on hemodialysis, who presents with generalized weakness and feeling unwell. She was noted by her son to be looking pale and was brought into her dialysis session today and subsequently brought in by EMS. She is able to ambulate by walker at baseline but now is barely able to get out of bed. She notes generalized weakness and endorses fevers and chills. On admission: Temperature of 100.3F, leukocytosis with WBC count of 25.8, and elevated lactic acid. She received fluids, and lactic acid levels improved. Started on vancomycin and Zosyn. Influenza A/B and COVID were negative. She has a tunneled catheter that appears clean, dry, and intact. She appears tired and weak, with 2 out of 5 strength in the upper and lower extremities. Family history is notable for father with cardiac disease, ischemic heart disease, and diabetes; mother with renal failure. Review of Systems: A complete 10-system review of systems was completed and negative except as noted in the HPI or here. ROS: - CONSTITUTIONAL: Reports generalized weakness, endorses fevers and chills. - HEENT: Denies changes in vision and hearing. - RESPIRATORY: Denies shortness of breath and cough. - CV: Denies chest pain and palpitations. - GI: Reports diarrhea. Denies abdominal pain, nausea, and vomiting. - : Denies dysuria and urinary frequency. - MSK: Reports weakness; denies myalgia and joint pain. - SKIN: Denies rash and pruritus. - NEUROLOGICAL: Denies headache and syncope. - PSYCHIATRIC: Denies recent changes in mood. Denies anxiety and depression. Past Medical History: Diagnosis Congestive heart failure (CHF) Hypertension Type 2 diabetes mellitus End-stage renal disease (ESRD) on hemodialysis Past Surgical History: History reviewed. No pertinent surgical history. Home Medications: Information not available. Allergies: No known drug allergies Family History: Problem Relation Cardiac disease Father Ischemic heart disease Father Diabetes Father Renal failure Mother Social History: Socioeconomic History Marital status: Not on file Number of children: Not on file Occupational History Not on file Tobacco Use Smoking status: Never smoked Substance and Sexual Activity Alcohol use: Denies alcohol use Drug use: Denies illicit drug use Social History Narrative Not on file Objective: Vital Signs on Arrival: Temp: 38C (100.3F) BP: Not available Pulse: Not available Resp: Not available SpO?: Not available Most Recent Vital Signs: Not available Admission Weight: Weight: Not available BMI: Not available Physical Exam: General: Appears tired and weak. Neck: Supple. No masses. HEENT: PERRL. Normal lids and conjunctiva. Moist mucous membranes. Oropharynx without lesions, exudates, or excessive erythema. Normal appearance of the external aspects of the nose and ears. Heart: Regular rhythm, normal rate. No murmur. No lower extremity edema. Lungs: Normal respiratory effort. Clear to auscultation bilaterally. No wheezes. No crackles. Abdomen: Soft. Non-tender. Non-distended. No masses or abdominal hernia. Msk: Weakness with 2/5 strength in upper and lower extremities. No digital cyanosis. Normal tone in all 4 limbs. Skin: Warm and dry, no rashes. Tunneled catheter on right chest appears clean, dry, and intact. Neuro: Alert. No facial droop or slurred speech. Extra-ocular movements intact. Sensation intact to soft touch in all 4 limbs. Psych: Appropriate mood. Full affect. Oriented to person, place, time, and situation. Lines: Active Lines Tunneled catheter in the right chest Diagnostic Studies: Available diagnostic studies were reviewed personally. Significant relevant results and findings are outlined below or addressed in the Assessment and Plan above. Pertinent Imaging: Recent Results (from the past 360 hour(s)) VQ Scan - Impression IMPRESSION: Low probability of pulmonary embolism. Chest X-ray - Impression IMPRESSION: Mild congestion. CT Chest/Abdomen/Pelvis - Impression IMPRESSION: 1. No acute abnormality seen in the chest. 2. Cholelithiasis without evidence of cholecystitis. 3. Scattered colonic diverticula without diverticulitis. 4. Several benign-appearing hepatic cysts measuring 3.2 cm. 5. Subcentimeter non-obstructing right renal stone. Laboratory Results: WBC: 25.8 - Hemoglobin: 9.8 (decreased from previous of 11.8) - Platelet count: 196 - Sodium: 137 BUN: 55 - Creatinine: 7.75 - HbA1c: 8.5% - Lactic acid: 1.6 AST: 13 ALT: <9 TSH: 1.76 - Vancomycin level: 14.3 Urinalysis: - Few bacteria; <1 WBC Plan discussed with: Patient STU CONDE MD Apr 21, 2024 20:39
[2024-04-21] MEDS: EPOETIN ALFA-EPBX 10,000 UNIT/1ML VIAL SC ONE (21:13)
--- NOTE | 2024-04-21 22:32 | DVHPN2 ---
Consult Progress Note Date Seen: Apr 21, 2024 Subjective Patient reports: Other (tolerated dialysis yesterday without any issues , alert and awake with stength improved 5/5. no longer having nay fevers , her catheter site appears clean and no belly pains but still having some diarrhea ) Objective vital signs Vital Sign Date Time Temp Pulse Resp B/P (MAP) Pulse Ox O2 Delivery O2 Flow Rate FiO2 04/21/24 21:00 98.8 72 18 150/43 (78) 100 98.8 04/21/24 08:00 Nasal Cannula* 3 32 Total Intake and Output 04/20/24 04/20/24 04/21/24 15:00 23:00 07:00 Intake Total 375 ml 400 ml 100 ml Output Total 0 ml Balance 375 ml 400 ml 100 ml medications Current Medications Medications Dose Ordered Sig/Jai Route Start Time Stop Time Status Last Admin Dose Admin Acetaminophen 325 mg Q4HP PRN PO 04/20/24 17:45 Acetaminophen/ Hydrocodone Bitart 1 tab Q4HP PRN PO 04/20/24 17:45 Temazepam 15 mg QHSP PRN PO 04/20/24 17:45 Ondansetron HCl 4 mg Q4HP PRN IV 04/20/24 17:45 Morphine Sulfate 2 mg Q4HPRN PRN IV 04/20/24 17:45 Nitroglycerin 0.4 mg Q5MINP PRN SL 04/20/24 17:45 Morphine Sulfate 2 mg Q30M PRN IV 04/20/24 17:45 Piperacillin Sod/ Tazobactam Sod 50 ml @ 50 mls/hr Q8HR IV 04/20/24 22:00 UNV Diagnostic Test (Pha) 1 strip ACHS 04/20/24 22:00 04/21/24 21:15 1 STRIP Insulin Human Regular ACHS SC 04/20/24 22:00 04/21/24 21:14 4 UNITS Dextrose 50 ml UD PRN IV 04/20/24 18:15 Vancomycin HCl 0 ml @ 0 mls/hr UD IV 04/20/24 21:00 Ceftriaxone Sodium 50 ml @ 100 mls/hr DAILY@09 IV 04/22/24 09:00 Physical Exam: General: Appears tired and weak. Neck: Supple. No masses. HEENT: PERRL. Normal lids and conjunctiva. Moist mucous membranes. Oropharynx without lesions, exudates, or excessive erythema. Normal appearance of the external aspects of the nose and ears. Heart: Regular rhythm, normal rate. No murmur. No lower extremity edema. Lungs: Normal respiratory effort. Clear to auscultation bilaterally. No wheezes. No crackles. Abdomen: Soft. Non-tender. Non-distended. No masses or abdominal hernia. Msk: Weakness with 2/5 strength in upper and lower extremities. No digital cyanosis. Normal tone in all 4 limbs. Skin: Warm and dry, no rashes. Tunneled catheter on right chest appears clean, dry, and intact. Neuro: Alert. No facial droop or slurred speech. Extra-ocular movements intact. Sensation intact to soft touch in all 4 limbs. Psych: Appropriate mood. Full affect. Oriented to person, place, time, and situation. laboratory and microbiology Laboratory Tests 04/21/24 08:20 Test 04/21/24 08:20 Range/Units Serum Glucose 74 74-106 mg/dL Problem List/Assessment/Plan Problems(with codes): (1) HTN (hypertension) (2) CHF (congestive heart failure) (3) Fatigue (4) Fluid overload (5) Elevated d-dimer (6) Chronic kidney disease with end stage renal failure on dialysis (7) Pulmonary vascular congestion (8) Anemia in chronic kidney disease (9) Uncontrolled diabetes mellitus (10) Sepsis (11) End stage renal disease on dialysis Problem List/Assessment/Plan ID Problem List: - End-stage renal disease (ESRD) on hemodialysis - Sepsis - Generalized weakness - Leukocytosis - Diarrheal illness - Anemia - Lactic acidosis - Congestive heart failure (CHF) - Hypertension - Type 2 diabetes mellitus Assessment This is an 84 y.o. female, has a past medical history of CHF, hypertension, type 2 diabetes mellitus, and ESRD on hemodialysis, who presents with generalized weakness and feeling unwell. She was noted by her son to be looking pale and was brought into her dialysis session today and subsequently brought in by EMS. She is able to ambulate by walker at baseline but now is barely able to get out of bed. She notes generalized weakness and endorses fevers and chills. On admission: Temperature of 100.3F, leukocytosis with WBC count of 25.8, and elevated lactic acid. She received fluids, and lactic acid levels improved. Started on vancomycin and Zosyn. Influenza A/B and COVID were negative. Tunneled catheter on right chest appears clean, dry, and intact. VQ scan with low probability of PE. Chest X-ray shows mild congestion. CT chest/abdomen/pelvis with: 1. No acute abnormality seen in the chest. 2. Cholelithiasis without evidence of cholecystitis. 3. Scattered colonic diverticula without diverticulitis. 4. Several benign-appearing hepatic cysts measuring 3.2 cm. 5. Subcentimeter non-obstructing right renal stone. 04/21: white count is going down and appears to be improving clinically Plan: - Now that blood pressures are improved and stable, recommend discontinuation of Zosyn. - Continue vancomycin. - Change to ceftriaxone for acute diarrheal illness. - Follow up on blood cultures. - If blood cultures remain negative and patient tolerates dialysis and sepsis picture continues to improve, recommend that patient go home on two weeks of vancomycin with dialysis, in the setting that blood cultures were drawn after antibiotics were administered. - Also recommend that surveillance blood cultures be drawn. - Follow up with Infectious Disease in three weeks for surveillance blood cultures. Plan discussed with: STU Harvey MD Apr 21, 2024 22:32
[2024-04-22] VITALS (7 sets, daily range): BP systolic 138–171; BP diastolic 40–54; PULSE 60–83; RESP 12–20; TEMP 36.7; O2SAT 93–100
--- NOTE | 2024-04-22 05:42 | DVHDS2 ---
New Physician D'charge PN Admitting Diagnosis Admitting Diagnosis sepsis Discharge Diagnosis sepsis diarhheal illness esrd on hd Operations or Procedures none Reason(s) For Hospitalization Surgery Hospital Course 84 F who comes to ER for weakness, She is an ESRD patient on HD thrice weekly. Her initial wbc was 25k on arrival and she had a low grade fever with tachycardia. She was admitted and started on broad spectrum IV Abx. Ct chest.abd/pelvis revealed diarrheal illness otherwise no acute findings. She was seen by neprhology and underwent HD here in hospital with no complications. ID saw her and her blood cultures were negative and WBC trended downward. ID recommends IV vancomycin x2 weeks during HD and surveillance cultures outpatient with ID follow up in 3 weeks. She will continue with her HD as scheduled outpt and heritage to arrange for HH and outpt IV ABx vancomycin as recommended by ID x 2 weeks to be given during HD. Treatment Plan Discharge Condition of Discharge Good Disposition Home with Health Services Discharge Instructions Diet: Renal Activity: No Restrictions, As Tolerated Medications: see med sheet Follow Up Care Follow Up/Referral: pcp renal Discharge Statement: "Patient was advised to return to the ER or call 911 if any headaches, dizziness, shortness of breath, chest pain, abdominal pain, bleeding, fevers, or worsening of medical condition. Patient was counseled about treatment plan, medications, possible side effects, patientverbalized understanding. All questions were answered to the best of my ability. This discharge took greater then 30 minutes in planning, reviewing documentation, counseling the patient, and discussing with other team members." COLE PALMER MD Apr 22, 2024 05:42
[2024-04-22] MEDS: cefTRIAXone 1GM/50ML D5W 50 ML IV SCH (08:40)
[2024-04-22 13:47] LABS: Basophils # (auto) 0 10 ^3/uL (0-0.2); Eosinophils # (auto) 0.1 10 ^3/uL (0-0.8); Hemoglobin 9.7 g/dL (12.2-16.2); Neutrophils # (auto) 7.1 10 ^3/uL (1.6-8.6); White Blood Cell 9.1 10^3/uL (4.4-10.8)
[2024-04-22 13:49] LABS: Basophils % (auto) 0.4 % (0.0-2.0); Eosinophils % (auto) 1.4 % (0.0-7.0); Hematocrit 29.9 % (36.0-46.0); Lymphocytes # (auto) 1.1 10 ^3/uL (0.4-5.4); Lymphocytes % (auto) 12.2 % (10.0-50.0); Mean Corpuscular Hemoglobin 33.2 pg (28.0-32.0); Mean Corpuscular Hgb Conc. 32.5 g/dL (32.0-36.0); Mean Corpuscular Volume 102.1 fL (80.0-100.0); Monocytes # (auto) 0.8 10 ^3/uL (0-1.3); Monocytes % (auto) 8.3 % (0.0-12.0); Neutrophils % (auto) 77.7 % (37.0-80.0); Nucleated Red Blood Cells % 0.2 %; Platelet Count (auto) 168 10^3/uL (140-450); Red Blood Cells 2.93 10^6/uL (4.0-5.20); Red Cell Distribution Width 14.4 % (11.8-14.3)
[2024-04-22 13:56] LABS: Chloride 100 mmol/L (98-107); Potassium 3.8 mmol/L (3.5-5.1)
[2024-04-22 13:57] LABS: Anion Gap 10 (5-15); Carbon Dioxide 25 mmol/L (20-31)
[2024-04-22 13:58] LABS: Calcium 7.7 mg/dL (8.7-10.4); Sodium 135 mmol/L (136-145)
[2024-04-22 14:03] LABS: Blood Urea Nitrogen 30 mg/dL (9-23); Glucose 271 mg/dL (74-106)
[2024-04-22] MEDS: LINEZOLID 600MG TABLET PO ONE (14:06)
--- NOTE | 2024-04-22 14:47 | DVHPN2 ---
Progress Note Date Seen: Apr 22, 2024 Medical Necessity Reason Pt with a Central, PICC or Fol: No Subjective Patient reports: No new complaints Other Systems: Patient seen and examined by myself on follow-up today Objective vital signs Vital Sign Date Time Temp Pulse Resp B/P (MAP) Pulse Ox O2 Delivery O2 Flow Rate FiO2 04/22/24 13:00 98.1 65 16 171/54 (93) 93 98.1 04/22/24 08:00 Nasal Cannula* 3 32 Total Intake and Output 04/21/24 04/21/24 04/22/24 15:00 23:00 07:00 Intake Total 330 ml 200 ml Balance 330 ml 200 ml medications Current Medications Medications Dose Ordered Sig/Jai Route Start Time Stop Time Status Last Admin Dose Admin Acetaminophen 325 mg Q4HP PRN PO 04/20/24 17:45 Acetaminophen/ Hydrocodone Bitart 1 tab Q4HP PRN PO 04/20/24 17:45 Temazepam 15 mg QHSP PRN PO 04/20/24 17:45 Ondansetron HCl 4 mg Q4HP PRN IV 04/20/24 17:45 Morphine Sulfate 2 mg Q4HPRN PRN IV 04/20/24 17:45 Nitroglycerin 0.4 mg Q5MINP PRN SL 04/20/24 17:45 Morphine Sulfate 2 mg Q30M PRN IV 04/20/24 17:45 Piperacillin Sod/ Tazobactam Sod 50 ml @ 50 mls/hr Q8HR IV 04/20/24 22:00 UNV Diagnostic Test (Pha) 1 strip ACHS 04/20/24 22:00 04/22/24 11:51 1 STRIP Insulin Human Regular ACHS SC 04/20/24 22:00 04/22/24 11:55 2 UNITS Dextrose 50 ml UD PRN IV 04/20/24 18:15 Vancomycin HCl 0 ml @ 0 mls/hr UD IV 04/20/24 21:00 Ceftriaxone Sodium 50 ml @ 100 mls/hr DAILY@09 IV 04/22/24 09:00 04/22/24 08:40 100 MLS/HR Examination: LUNGS:Normal, CVS:Normal, MSK:Normal laboratory and microbiology Laboratory Tests 04/22/24 13:10 Test 04/22/24 13:10 Range/Units Serum Glucose 271 H 74-106 mg/dL Microbiology Date/Time Source Procedure Growth Status 04/20/24 21:10 Blood Blood Culture - Preliminary NO GROWTH AFTER 24 HOURS OF INCUBATION. Resulted Problem List/Assessment/Plan Problem List/Assessment/Plan End-stage renal disease on hemodialysis Chronic diastolic heart failure Diabetes mellitus type 2 Hypertension Generalized weakness Sepsis Anemia of chronic kidney disease Recommendations Next hemodialysis 04/24 Epogen 33296 IV post hemodialysis Blood culture is pending IV antibiotics per ID consult Resume home medications Renal diet We will continue supportive care Plan discussed with: Patient CARLOS HAYES MD Apr 22, 2024 14:47
[2024-04-22] MEDS: hydrALAZINE HCL 20 MG/ML VL IV PRN (17:09)
--- NOTE | 2024-04-22 22:51 | DVHPN2 ---
Consult Progress Note Date Seen: Apr 22, 2024 Subjective Patient reports: Other (no fevers or chills , diarrhea has resolved , piccline is clean ) Objective vital signs Vital Sign Date Time Temp Pulse Resp B/P (MAP) Pulse Ox O2 Delivery O2 Flow Rate FiO2 04/22/24 17:09 180/53 04/22/24 16:30 98.9 69 16 100 98.9 04/22/24 08:00 Nasal Cannula* 3 32 Total Intake and Output 04/21/24 04/21/24 04/22/24 15:00 23:00 07:00 Intake Total 330 ml 200 ml Balance 330 ml 200 ml medications Current Medications Medications Dose Ordered Sig/Jai Route Start Time Stop Time Status Last Admin Dose Admin Piperacillin Sod/ Tazobactam Sod 50 ml @ 50 mls/hr Q8HR IV 04/20/24 22:00 UNV laboratory and microbiology Laboratory Tests 04/22/24 13:10 Test 04/22/24 13:10 Range/Units Serum Glucose 271 H 74-106 mg/dL Problem List/Assessment/Plan Problems(with codes): (1) End stage renal disease on dialysis (2) HTN (hypertension) (3) CHF (congestive heart failure) (4) Fatigue (5) Fluid overload (6) Elevated d-dimer (7) Chronic kidney disease with end stage renal failure on dialysis (8) Pulmonary vascular congestion (9) Anemia in chronic kidney disease (10) Sepsis (11) Uncontrolled diabetes mellitus (12) Generalized weakness Problem List/Assessment/Plan ID Problem List: - End-stage renal disease (ESRD) on hemodialysis - Sepsis - Generalized weakness - Leukocytosis - Diarrheal illness - Anemia - Lactic acidosis - Congestive heart failure (CHF) - Hypertension - Type 2 diabetes mellitus Assessment This is an 84 y.o. female, has a past medical history of CHF, hypertension, type 2 diabetes mellitus, and ESRD on hemodialysis, who presents with generalized weakness and feeling unwell. She was noted by her son to be looking pale and was brought into her dialysis session today and subsequently brought in by EMS. She is able to ambulate by walker at baseline but now is barely able to get out of bed. She notes generalized weakness and endorses fevers and chills. On admission: Temperature of 100.3F, leukocytosis with WBC count of 25.8, and elevated lactic acid. She received fluids, and lactic acid levels improved. Started on vancomycin and Zosyn. Influenza A/B and COVID were negative. Tunneled catheter on right chest appears clean, dry, and intact. VQ scan with low probability of PE. Chest X-ray shows mild congestion. CT chest/abdomen/pelvis with: 1. No acute abnormality seen in the chest. 2. Cholelithiasis without evidence of cholecystitis. 3. Scattered colonic diverticula without diverticulitis. 4. Several benign-appearing hepatic cysts measuring 3.2 cm. 5. Subcentimeter non-obstructing right renal stone. 04/21: white count is going down and appears to be improving clinically 04/22: Whitecount is 9.1 Plan: - Now that blood pressures are improved and stable, recommend discontinuation of Zosyn. - Continue vancomycin. - Change to ceftriaxone for acute diarrheal illness. - Follow up on blood cultures. - If blood cultures remain negative and patient tolerates dialysis and sepsis picture continues to improve, recommend that patient go home on two weeks of vancomycin with dialysis, in the setting that blood cultures were drawn after antibiotics were administered. - Also recommend that surveillance blood cultures be drawn. - Follow up with Infectious Disease in three weeks for surveillance blood cultures. Plan discussed with: STU Harvey MD Apr 22, 2024 22:51
--- NOTE | 2024-05-13 11:45 | DVH ---
NUCLEAR MEDICINE VENTILATION/PERFUSION LUNG SCAN. INDICATION: PULMONARY EMBOLISM TECHNIQUE: Following intravenous demonstration of 6 millicuries of technetium 99m MAA, and inhalation of 40 mCi of Tc 99m DTPA scintigrams were obtained in multiple projections of the lungs. FINDINGS: There is normal uptake of radionuclide on both the ventilation and perfusion portions of the examination. No mismatched perfusion defects are demonstrated. Uptake is normally homogeneous. IMPRESSION: Low probability for PE. SHAVER LUZMARIA
== END 2024-04-22 19:20 | disposition home health service (06) | DRG 871 ==
LOC: EDBD 07:57 → ER 07:59 → TELE 17:32 → TELE-WESTW 04-21 04:16
PROVIDERS: ADMIT Student in an Organized Health Care Education/Training Program; ATTEND Student in an Organized Health Care Education/Training Program
PROC: 5A1D70Z Performance of Urinary Filtration, Intermittent, Less than 6 Hours Per Day (ICD-10-PCS; principal; 2024-04-20)
PROC: 5A1D70Z Performance of Urinary Filtration, Intermittent, Less than 6 Hours Per Day (ICD-10-PCS; 2024-04-21)
DX: A41.9 Sepsis, unspecified organism (principal); J15.69 Pneumonia due to other Gram-negative bacteria; N18.6 End stage renal disease; J15.9 Unspecified bacterial pneumonia; E87.20 Acidosis, unspecified; I50.32 Chronic diastolic (congestive) heart failure; I13.2 Hypertensive heart and chronic kidney disease with heart failure and with stage 5 chronic kidney disease, or end stage renal disease; E11.22 Type 2 diabetes mellitus with diabetic chronic kidney disease; D63.1 Anemia in chronic kidney disease; E78.5 Hyperlipidemia, unspecified; E11.65 Type 2 diabetes mellitus with hyperglycemia; I25.10 Atherosclerotic heart disease of native coronary artery without angina pectoris; Z99.2 Dependence on renal dialysis; Z86.73 Personal history of transient ischemic attack (TIA), and cerebral infarction without residual deficits; Z90.710 Acquired absence of both cervix and uterus; Z83.3 Family history of diabetes mellitus; Z82.49 Family history of ischemic heart disease and other diseases of the circulatory system; Z84.1 Family history of disorders of kidney and ureter; Z79.4 Long term (current) use of insulin
CPT/HCPCS: 36415; 71045; 71250; 74176; 78582; 80048; 80053; 80202; 82962; 83605; 83735; 83880; 84100; 84484; 85007; 85025; 85027; 85379; 87040; 87426; 87804; 90935; 93005; 96361; 96365; 97163; 99291; G0378; J1815; J2543